=== PATIENT | female | born 1965 | race African-American/Black ===

== ENCOUNTER 2017-01-19 12:44 | Inpatient (IN) | payer OTHER ==
[2017-01-19 13:13] VITALS: BMI 27.2
--- NOTE | 2017-01-19 14:17 | HP ---
COWS - Scale Resting Pulse: 1= [place] 81-100 Sweatin= Chills/Flushing Restless Observation: 1= Difficult to Sit Still Pupil Size: 0= Normal to Room Light Bone or Joint Aches: 1= Mild Discomfort Runny Nose/ Eye Tearin= Nasal Congestion GI Upset > 30mins: 1= Stomach Cramp Tremor Observation: 1= Tremor [place], Not Seen Yawning Observation: 1= 1-2x During Session Anxiety or Irritability: 1=Feels Anxious/Irritable Goose Flesh Skin: 0=Smooth Skin COWS Score: 9 CIWA Score - CIWA Score Nausea/Vomitin-Mild Nausea/No Vomiting Muscle Tremors: 4-Moderate,w/Arms Extend Anxiety: 4-Mod. Anxious/Guarded Agitation: 1-Slight > Activity Paroxysmal Sweats: 1-Minimal Palms Moist Orientation: 1-Uncertain about Date Tacttile Disturbances: 1-Very Mild Itch/Numbness Auditory Disturbances: 1-Very Mild Visual Disturbances: 1-Very Mild Sensitivity Headache: 2-Mild CIWA-Ar Total Score: 17 Admission ROS S - HPI Chief Complaint: I need help, I want to stop Allergies/Adverse Reactions: Allergies Allergy/AdvReac Type Severity Reaction Status Date / Time No Known Allergies Allergy Verified 05/07/14 16:09 History of Present Illness: 51 yo woman here for detox from heroin and alcohol - no seizures or black outs but past history of detox. States she was hospitalized for three days for walking pneumonia in [place] about two weeks ago. Exam Limitations: Clinical Condition - Ebola screening Have you traveled outside of the country in the last 21 days: No Have you had contact with anyone from an Ebola affected area: No Have you been sick,other than usual withdrawal symptoms: No Do you have a fever: No - Review of Systems Constitutional: Loss of Appetite, Malaise, Night Sweats, Changes in sleep EENT: reports: Blurred Vision, Nose Congestion Respiratory: reports: No Symptoms reported Cardiac: reports: No Symptoms Reported GI: reports: Poor Appetite, Indigestion : reports: No Symptoms Reported Musculoskeletal: reports: Back Pain, Muscle Pain Integumentary: reports: No Symptoms Reported Neuro: reports: Headache Endocrine: reports: No Symptoms Reported Hematology: reports: No Symptoms Reported Psychiatric: reports: Judgement Intact, Mood/Affect Appropiate, Anxious Other Systems: Reviewed and Negative Patient History - Patient Medical History Hx Anemia: No Hx Asthma: Yes Hx Chronic Obstructive Pulmonary Disease (COPD): No Hx Cancer: No Hx Cardiac Disorders: No Hx Congestive Heart Failure: No Hx Hypertension: Yes (ON MEDS.) Hx Hypercholesterolemia: No Hx Pacemaker: No HX Cerebrovascular Accident: No Hx Seizures: No Hx Dementia: No Hx Diabetes: No Hx Gastrointestinal Disorders: No Hx Liver Disease: No Hx Genitourinary Disorders: No Hx Sexually Transmitted Disorders: No Hx Renal Disease (ESRD): No Hx Thyroid Disease: No Hx Human Immunodeficiency Virus (HIV): No Hx Hepatitis C: Yes (treated x 3 months) Hx Depression: Yes (on meds) Hx Suicide Attempt: No Hx Bipolar Disorder: No Hx Schizophrenia: No - Patient Surgical History Past Surgical History: No Hx Neurologic Surgery: No Hx Cataract Extraction: No Hx Cardiac Surgery: No Hx Lung Surgery: No Hx Breast Surgery: No Hx Breast Biopsy: No Hx Abdominal Surgery: No Hx Appendectomy: No Hx Cholecystectomy: No Hx Genitourinary Surgery: No Hx Section: No Hx Orthopedic Surgery: No Anesthesia Reaction: No - PPD History Previous Implant?: Yes Documented Results: Negative w/o proof Implanted On Prior [facility] Admission?: Yes Date: 05/09/14 PPD to be Administered?: Yes - Reproductive History Patient is a Female of Child Bearing Age (11 -55 yrs old): Yes Last Menstrual Period: 04/25/14 - Smoking Cessation Smoking history: Current every day smoker Have you smoked in the past 12 months: Yes Aproximately how many cigarettes per day: 20 Hx Chewing Tobacco Use: Yes Initiated information on smoking cessation: Yes 'Breaking Loose' booklet given: 01/19/17 (give on floor) - Substance & Tx. History Hx Alcohol Use: Yes Hx Substance Use: Yes Substance Use Type: Alcohol, Cocaine, Heroin Hx Substance Use Treatment: Yes (detox, rehab) - Substances Abused Heroin Route: Inhalation Frequency: Daily Amount used: 10 bags Age of first use: 20 Date of Last Use: 01/18/17 Alcohol Frequency: Daily Amount used: 1/2 pint liquor; two six packs beer Age of first use: 17 Date of Last Use: 01/18/17 Cocaine Route: Inhalation Frequency: 1-3 times last 30 days Amount used: 2 dime bags Age of first use: 26 Date of Last Use: 01/18/17 Family Disease History - Family Disease History Family Disease History: Other: Father ( - murdered), Mother (, alzheimers) Admission Physical Exam [facility] - Vital Signs Vital Signs: Vital Signs - 24 hr 01/19/17 13:07 Temperature 97.5 F L Pulse Rate 89 Respiratory 18 Rate Blood Pressure 180/111 - Physical General Appearance: Yes: Nourished, Appropriately Dressed, Mild Distress, Anxious HEENTM: Yes: Hearing grossly Normal, Normocephalic, Normal Voice, Pharynx Normal , Nasal Congestion Respiratory: Yes: Normal Breath Sounds, No Respiratory Distress Neck: Yes: No masses,lesions,Nodules, Supple Breast: Yes: Breast Exam Deferred Cardiology: Yes: Regular Rhythm, Regular Rate Abdominal: Yes: Soft Genitourinary: Yes: Within Normal Limits Back: Yes: Normal Inspection Musculoskeletal: Yes: full range of Motion, Gait Steady Extremities: Yes: Normal Inspection, Normal Range of Motion Neurological: Yes: Fully Oriented, Alert, Normal Mood/Affect, Normal Response Integumentary: Yes: Normal Color, Warm Lymphatic: Yes: Within Normal Limits - Diagnostic (1) Alcohol dependence with uncomplicated withdrawal Current Visit: Yes Status: Chronic (2) Nicotine dependence Current Visit: Yes Status: Chronic Qualifiers: Nicotine product type: cigarettes Substance use status: uncomplicated Qualified Code(s): F17.210 - Nicotine dependence, cigarettes, uncomplicated (3) Opioid dependence with withdrawal Current Visit: Yes Status: Chronic (4) HTN (hypertension) Current Visit: Yes Status: Acute Qualifiers: Hypertension type: essential hypertension Qualified Code(s): I10 - Essential (primary) hypertension (5) Asthma Current Visit: Yes Status: Acute Qualifiers: Asthma severity: mild intermittent Asthma complication type: uncomplicated Qualified Code(s): J45.20 - Mild intermittent asthma, uncomplicated (6) GERD (gastroesophageal reflux disease) Current Visit: Yes Status: Chronic Qualifiers: Esophagitis presence: esophagitis presence not specified Qualified Code(s): K21.9 - Gastro-esophageal reflux disease without esophagitis Cleared for Admission [facility] - Detox or Rehab [facility] Level of Care: Medically Managed Detox Regimen/Protocol: Methadone/Librium S Breath Alcohol Content Breath Alcohol Content: 0 Urine Pregancy Test - Result Urine Test Results: Negative- NO Line Present Urine Drug Screen - Results Drug Screen Negative: No Urine Drug Screen Results: LISSET-Cocaine, OPI-Opiates, OXY-Oxycodone
[2017-01-19] MEDS ORDERED: ACETAMINOPHEN 325 MG TABLET (FP) PO PRN (14:31)
[2017-01-19] MEDS ORDERED: IBUPROFEN 400 MG TABLET (FP) PO PRN (14:31)
[2017-01-19] MEDS ORDERED: guaiFENesin/D-METHORPHAN HB 10 ML UNIT-DOSE CUPS PO PRN (14:31)
[2017-01-19] MEDS ORDERED: chlordiazePOXIDE HCL 25 MG CAPSULE PO PRN (14:31)
[2017-01-19] MEDS ORDERED: MENTHOL/PHENOL 1 EACH UD MM PRN (14:31)
[2017-01-19] MEDS ORDERED: MAGNESIUM HYDROX 2400MG/30ML ORAL SUSPENSION 30 ML CUP PO PRN (14:31)
[2017-01-19] MEDS ORDERED: hydrOXYzine PAMOATE 50 MG CAPSULE (FP) PO PRN (14:31)
[2017-01-19] MEDS ORDERED: LOPERAMIDE HCL 2 MG CAPSULE PO PRN (14:31)
[2017-01-19] MEDS ORDERED: P-EPHED 60MG/TRIPROLIDI 2.5MG TABLET PO PRN (14:31)
[2017-01-19] MEDS ORDERED: MAGNESIUM CITRATE 300 ML BOTTLE PO PRN (14:31)
[2017-01-19] MEDS ORDERED: ALBUTEROL SO4 6.7 GM HFA INHALER IH PRN (14:33)
[2017-01-19] MEDS ORDERED: chlordiazePOXIDE HCL 25 MG CAPSULE PO ONE (16:00)
[2017-01-19] MEDS ORDERED: METHADONE HCL 10 MG TABLET (FOR DETOX USE ONLY) PO ONE ×2 (16:00→23:00)
[2017-01-19] MEDS: chlordiazePOXIDE HCL 25 MG CAPSULE PO SCH ×2 (17:21→22:32)
[2017-01-19] MEDS ORDERED: amLODIPine BESYLATE 10 MG TABLET (FP) PO ONE (17:32)
[2017-01-19 19:16] LABS: URINE APPEARANCE CLOUDY; URINE BILIRUBIN NEGATIVE (NEGATIVE); URINE BLOOD 2+ (NEGATIVE); URINE COLOR YELLOW; URINE GLUCOSE (UA) NEGATIVE (NEGATIVE); URINE KETONE NEGATIVE (NEGATIVE); URINE LEUK ESTERASE NEGATIVE (NEGATIVE); URINE NITRITE NEGATIVE (NEGATIVE); URINE PROTEIN 2+ (NEGATIVE); URINE UROBILINOGEN NEGATIVE E.U./dl (0.2-1.0)
[2017-01-19 19:49] LABS: URINE RBC 25-30 /hpf (0-3)
[2017-01-19 19:50] LABS: URINE BACTERIA MANY /hpf (NONE SEEN)
[2017-01-19] MEDS ORDERED: HYDROCHLOROTHIAZIDE 25 MG TABLET (FP) PO ONE (21:09)
[2017-01-19] MEDS: diphenhydrAMINE HCL 50 MG CAPSULE PO PRN (22:31)
[2017-01-19] MEDS: THIAMINE HCL 100 MG TABLET (FP) PO SCH (22:42)
[2017-01-20] MEDS: chlordiazePOXIDE HCL 25 MG CAPSULE PO SCH ×4 (05:33→22:25)
[2017-01-20] MEDS ORDERED: METHADONE HCL 10 MG TABLET (FOR DETOX USE ONLY) PO SCH (10:00)
[2017-01-20 10:26] LABS: MCH 27.4 pg (25.7-33.7); MCHC 32.8 g/dl (32.0-36.0); MEAN CELL VOLUME 83.5 fl (80-96); MEAN PLT VOLUME 9.2 fl (7.5-11.1); RDW 22.5 % (11.6-15.6); WHITE BLOOD COUNT 6.7 K/mm3 (4.0-10.0)
[2017-01-20] MEDS: PANTOPRAZOLE 40 MG TABLET (FP) PO SCH (10:27)
[2017-01-20] MEDS: PRENATAL VITAMINS W/ FOLIC ACID TABLET (FP) PO SCH (10:27)
[2017-01-20] MEDS: HYDROCHLOROTHIAZIDE 25 MG TABLET (FP) PO SCH (10:27)
[2017-01-20] MEDS: amLODIPine BESYLATE 10 MG TABLET (FP) PO SCH (10:27)
[2017-01-20 10:46] LABS: ALBUMIN 3.2 g/dl (3.4-5.0); ALK PHOS 75 U/L (45-117); ANION GAP 7 (8-16); BILIRUBIN,TOTAL 0.4 mg/dL (0.2-1.0); CALCIUM 9.4 mg/dL (8.5-10.1); CO2 30 mmol/L (21-32); CREATININE 0.8 mg/dL (0.55-1.02); GLUCOSE,RANDOM 95 mg/dL (74-106); SGOT/AST 40 U/L (15-37); SGPT/ALT 52 U/L (12-78); TOT PROT 6.9 g/dl (6.4-8.2)
[2017-01-20 11:16] LABS: ANISOCYTOSIS 3+; PLATELET COMMENT2 MOD PLT CLUMPING
--- NOTE | 2017-01-20 12:17 | PN ---
S CIWA - CIWA Score Nausea/Vomitin Muscle Tremors: 3 Anxiety: 4-Mod. Anxious/Guarded Agitation: 4-Moderately Restless Paroxysmal Sweats: No Perspiration Orientation: 0-Oriented Tacttile Disturbances: 1-Very Mild Itch/Numbness Auditory Disturbances: 0-None Visual Disturbances: 0-None Headache: 3-Moderate CIWA-Ar Total Score: 18 [facility] COWS - Scale Resting Pulse: 0= [place] 80 or Below Sweatin= Chills/Flushing Restless Observation: 1= Difficult to Sit Still Pupil Size: 1= Pupils >than Normal Bone or Joint Aches: 2= Severe Diffuse Aches Runny Nose/ Eye Tearin= Runny Nose/Eyes GI Upset > 30mins: 2= Nausea/Diarrhea Tremor Observation of Outstretched Hands: 1= Tremor [place], Not Seen Yawning Observation: 1= 1-2x During Session Anxiety or Irritability: 2=Irritable/Anxious Goose Flesh Skin: 0=Smooth Skin COWS Score: 13 S Progress Note (SOAP) Subjective: Irritable, Generalized Body Aches, Interrupted Sleep, Anxiety, Tremors Objective: 01/20/17 12:14 Vital Signs Temperature 98.1 F 01/20/17 10:00 Pulse Rate 78 01/20/17 10:00 Respiratory Rate 18 01/20/17 10:00 Blood Pressure 158/104 01/20/17 10:00 O2 Sat by Pulse Oximetry (%) Laboratory Last Values WBC 6.7 K/mm3 (4.0-10.0) 01/20/17 08:00 RBC 4.21 M/mm3 (3.60-5.2) 01/20/17 08:00 Hgb 11.5 GM/dL (10.7-15.3) 01/20/17 08:00 Hct 35.1 % (32.4-45.2) 01/20/17 08:00 MCV 83.5 fl (80-96) 01/20/17 08:00 MCHC 32.8 g/dl (32.0-36.0) 01/20/17 08:00 RDW 22.5 % (11.6-15.6) H 01/20/17 08:00 Plt Count Not Reportable 01/20/17 08:00 MPV 9.2 fl (7.5-11.1) D 01/20/17 08:00 Platelet Comment No clotting detected 01/20/17 08:00 Platelet Comment Mod plt clumping 01/20/17 08:00 Anisocytosis 3+ 01/20/17 08:00 Sodium 139 mmol/L (136-145) 01/20/17 08:00 Potassium 4.0 mmol/L (3.5-5.1) 01/20/17 08:00 Chloride 102 mmol/L (98-107) 01/20/17 08:00 Carbon Dioxide 30 mmol/L (21-32) 01/20/17 08:00 Anion Gap 7 (8-16) L 01/20/17 08:00 BUN 12 mg/dL (7-18) 01/20/17 08:00 Creatinine 0.8 mg/dL (0.55-1.02) 01/20/17 08:00 Creat Clearance w eGFR > 60 (>60) 01/20/17 08:00 Random Glucose 95 mg/dL (74-106) 01/20/17 08:00 Calcium 9.4 mg/dL (8.5-10.1) 01/20/17 08:00 Total Bilirubin 0.4 mg/dL (0.2-1.0) 01/20/17 08:00 AST 40 U/L (15-37) H D 01/20/17 08:00 ALT 52 U/L (12-78) 01/20/17 08:00 Alkaline Phosphatase 75 U/L (45-117) 01/20/17 08:00 Total Protein 6.9 g/dl (6.4-8.2) 01/20/17 08:00 Albumin 3.2 g/dl (3.4-5.0) L 01/20/17 08:00 Urine Color Yellow 01/19/17 18:00 Urine Appearance Cloudy 01/19/17 18:00 Urine pH 5.0 (5.0-8.0) D 01/19/17 18:00 Ur Specific [place] 1.018 (1.001-1.035) 01/19/17 18:00 Urine Protein 2+ (NEGATIVE) H 01/19/17 18:00 Urine Glucose (UA) Negative (NEGATIVE) 01/19/17 18:00 Urine Ketones Negative (NEGATIVE) 01/19/17 18:00 Urine Blood 2+ (NEGATIVE) H 01/19/17 18:00 Urine Nitrite Negative (NEGATIVE) 01/19/17 18:00 Urine Bilirubin Negative (NEGATIVE) 01/19/17 18:00 Urine Urobilinogen Negative E.U./dl (0.2-1.0) 01/19/17 18:00 Ur Leukocyte Esterase Negative (NEGATIVE) 01/19/17 18:00 Urine RBC 25-30 /hpf (0-3) 01/19/17 18:00 Urine WBC 10-15 /hpf (3-5) 01/19/17 18:00 Urine Bacteria Many /hpf (NONE SEEN) 01/19/17 18:00 labs Noted Assessment: Withdrawal Symptoms Plan: Continue Detox
--- NOTE | 2017-01-20 18:18 | EKG ---
Test Reason : Blood Pressure : / mmHG Vent. Rate : 080 BPM Atrial Rate : 080 BPM P-R Int : 164 ms QRS Dur : 088 ms QT Int : 400 ms P-R-T Axes : 063 057 045 degrees QTc Int : 461 ms NORMAL SINUS RHYTHM POSSIBLE LEFT ATRIAL ENLARGEMENT LEFT VENTRICULAR HYPERTROPHY ABNORMAL ECG NO PREVIOUS ECGS AVAILABLE Confirmed by JAYLON HALL MD ([id number]) on 01/20/2017 6:18:05 PM Referred By: Confirmed By:JAYLON HALL MD
[2017-01-20] MEDS: diphenhydrAMINE HCL 50 MG CAPSULE PO PRN (22:25)
[2017-01-20] MEDS: THIAMINE HCL 100 MG TABLET (FP) PO SCH (22:25)
[2017-01-20] MEDS: NICOTINE POLACRILEX 4 MG GUM BUC PRN (22:28)
[2017-01-20] MEDS ORDERED: cloNIDine HCL 0.1 MG TABLET PO ONE (23:13)
[2017-01-21] MEDS: chlordiazePOXIDE HCL 25 MG CAPSULE PO SCH ×2 (06:20→10:20)
--- NOTE | 2017-01-21 07:44 | CONSULT ---
[facility] Psychiatric Consult - Data Date of interview: 01/21/17 Admission source: [facility] Identifying data: This is 51 years old female with psychiatric hospitalization history intozxicated with Alcohol, Cocaine, and Nicotine, Heroin Substance Abuse History: - Smoking Cessation. Smoking history: Current every day smoker. Have you smoked in the past 12 months: Yes. Aproximately how many cigarettes per day: 20. Hx Chewing Tobacco Use: Yes. Initiated information on smoking cessation: Yes. 'Breaking Loose' booklet given: 01/19/17 (give on floor ). - Substance & Tx. History. Hx Alcohol Use: Yes. Hx Substance Use: Yes. Substance Use Type: Alcohol, Cocaine, Heroin. Hx Substance Use Treatment: Yes ( detox, rehab). - Substances Abused. Heroin. Route: Inhalation. Frequency : Daily. Amount used: 10 bags. Age of first use: 20. Date of Last Use: . Alcohol. Frequency: Daily. Amount used: 1/2 pint liquor; two six packs beer. Age of first use: 17. Date of Last Use: 01/18/17. Cocaine. Route: Inhalation. Frequency: 1-3 times last 30 days. Amount used: 2 dime bags. Age of first use: 26. Date of Last Use: 01/18/17 Medical History: Asthma, HTN, GERD, HepC+, Syncope history Psychiatric History: Patient reportsd history of Schizoaffective disorder, Bipol ;ar disorder, reports [facility], reprots currently taking: Remeron 15mg po qhs. As per computere there is a history of Bipolar disorder, Schizoaffective disorder Physical/Sexual Abuse/Trauma History: Denies Additional Comment: Remeron 15mg po qhs Mental Status Exam - Mental Status Exam Alert and Oriented to: Person Cognitive Function: Fair Affect: Flat Patient Behavior: Sedated Speech Pattern: Delayed Voice Loudness: Mildly Soft/Quiet Thought Process: Circumstantial Thought Disorder: Being Controlled Hallucinations: Denies Suicidal Ideation: Denies Homicidal Ideation: Denies Insight/Judgement: Fair Sleep: Difficulty falling asleep Appetite: Weight gain Muscle strength/Tone: Mild Hypotonicity Gait/Station: Shuffling Additional Comments: Remeron 15mg po qhs Psychiatric Findings - Problem List ([place] 1, 2,3) (1) Alcohol dependence with uncomplicated withdrawal Current Visit: Yes Status: Chronic (2) Nicotine dependence Current Visit: Yes Status: Chronic Qualifiers: Nicotine product type: cigarettes Substance use status: uncomplicated Qualified Code(s): F17.210 - Nicotine dependence, cigarettes, uncomplicated (3) Opioid dependence with withdrawal Current Visit: Yes Status: Chronic (4) Cocaine dependence Current Visit: No Status: Active (5) Hepatitis C carrier Current Visit: No Status: Active (6) Mood Disorder NOS Current Visit: No Status: Acute (7) Schizoaffective disorder, bipolar type Current Visit: Yes Status: Suspected (8) Non compliance w medication regimen Current Visit: Yes Status: Acute - Initial Treatment Plan Initial Treatment Plan: Remeron 15mg po qhs
[2017-01-21] MEDS: METHADONE HCL 5 MG TABLET (FOR DETOX USE ONLY) PO SCH (10:20)
[2017-01-21] MEDS: PANTOPRAZOLE 40 MG TABLET (FP) PO SCH (10:20)
[2017-01-21] MEDS: HYDROCHLOROTHIAZIDE 25 MG TABLET (FP) PO SCH (10:20)
[2017-01-21] MEDS: amLODIPine BESYLATE 10 MG TABLET (FP) PO SCH (10:20)
[2017-01-21] MEDS: PRENATAL VITAMINS W/ FOLIC ACID TABLET (FP) PO SCH (10:20)
--- NOTE | 2017-01-21 10:56 | PN ---
[facility] CIWA - CIWA Score Nausea/Vomitin-No Nausea/No Vomiting Muscle Tremors: 4-Moderate,w/Arms Extend Anxiety: 4-Mod. Anxious/Guarded Agitation: 4-Moderately Restless Paroxysmal Sweats: 3 Orientation: 0-Oriented Tacttile Disturbances: 0-None Auditory Disturbances: 0-None Visual Disturbances: 0-None Headache: 0-None Present CIWA-Ar Total Score: 15 S COWS - Scale Resting Pulse: 1= [place] 81-100 Sweatin=Flushed/Facial Moisture Restless Observation: 1= Difficult to Sit Still Pupil Size: 0= Normal to Room Light Bone or Joint Aches: 2= Severe Diffuse Aches Runny Nose/ Eye Tearin= Nasal Congestion GI Upset > 30mins: 0= None Tremor Observation of Outstretched Hands: 1= Tremor [place], Not Seen Yawning Observation: 1= 1-2x During Session Anxiety or Irritability: 1=Feels Anxious/Irritable Goose Flesh Skin: 3=Piloerection COWS Score: 13 [facility] Progress Note (SOAP) Subjective: chills sweats low back pain tired interrupted sleep Objective: 01/21/17 10:55 Vital Signs Temperature 98.4 F 01/21/17 10:22 Pulse Rate 84 01/21/17 10:22 Respiratory Rate 16 01/21/17 10:22 Blood Pressure 142/95 01/21/17 10:22 O2 Sat by Pulse Oximetry (%) Laboratory Tests 01/19/17 01/20/17 01/20/17 18:00 08:00 08:00 WBC 6.7 RBC 4.21 Hgb 11.5 Hct 35.1 MCV 83.5 MCHC 32.8 RDW 22.5 H Plt Count Not Reportable MPV 9.2 D Platelet Comment Mod plt clumping Anisocytosis 3+ Sodium 139 Potassium 4.0 Chloride 102 Carbon Dioxide 30 Anion Gap 7 L BUN 12 Creatinine 0.8 Creat Clearance w eGFR > 60 Random Glucose 95 Calcium 9.4 Total Bilirubin 0.4 AST 40 H D ALT 52 Alkaline Phosphatase 75 Total Protein 6.9 Albumin 3.2 L Urine Color Yellow Urine Appearance Cloudy Urine pH 5.0 D Ur Specific [place] 1.018 Urine Protein 2+ H Urine Glucose (UA) Negative Urine Ketones Negative Urine Blood 2+ H Urine Nitrite Negative Urine Bilirubin Negative Urine Urobilinogen Negative Ur Leukocyte Esterase Negative Urine RBC 25-30 Urine WBC 10-15 Urine Bacteria Many RPR Titer T.pallidum Ab (A) 01/20/17 08:00 WBC RBC Hgb Hct MCV MCHC RDW Plt Count MPV Platelet Comment Anisocytosis Sodium Potassium Chloride Carbon Dioxide Anion Gap BUN Creatinine Creat Clearance w eGFR Random Glucose Calcium Total Bilirubin AST ALT Alkaline Phosphatase Total Protein Albumin Urine Color Urine Appearance Urine pH Ur Specific [place] Urine Protein Urine Glucose (UA) Urine Ketones Urine Blood Urine Nitrite Urine Bilirubin Urine Urobilinogen Ur Leukocyte Esterase Urine RBC Urine WBC Urine Bacteria RPR Titer Reactive 1:1 H T.pallidum Ab ([facility]) Previously reactive awake/alert lying in bed no acute distress Assessment: 01/21/17 10:56 withdrawal sx Plan: continue detox increase fluids
[2017-01-21] MEDS: chlordiazePOXIDE 5 MG CAPSULE PO SCH ×2 (17:49→22:13)
[2017-01-21] MEDS: NICOTINE POLACRILEX 4 MG GUM BUC PRN (17:52)
[2017-01-21] MEDS: THIAMINE HCL 100 MG TABLET (FP) PO SCH (22:12)
[2017-01-21] MEDS: diphenhydrAMINE HCL 50 MG CAPSULE PO PRN (22:12)
[2017-01-21] MEDS: MIRTAZAPINE 15 MG TABLET (FP) PO SCH (22:12)
--- NOTE | 2017-01-21 23:00 | PN ---
S Progress Note Note: received nurse call bp 144/102, librium 15 mg administered change diet to no salt continue detox
[2017-01-22] MEDS: chlordiazePOXIDE 5 MG CAPSULE PO SCH ×2 (05:35→10:18)
--- NOTE | 2017-01-22 09:46 | PN ---
[facility] Progress Note (SOAP) Subjective: sweats, lbp Objective: 01/22/17 09:44 Vital Signs Temperature 97.5 F L 01/22/17 06:33 Pulse Rate 77 01/22/17 06:33 Respiratory Rate 18 01/22/17 06:33 Blood Pressure 129/84 01/22/17 06:33 O2 Sat by Pulse Oximetry (%) Laboratory Tests 01/19/17 01/20/17 01/20/17 18:00 08:00 08:00 WBC 6.7 RBC 4.21 Hgb 11.5 Hct 35.1 MCV 83.5 MCHC 32.8 RDW 22.5 H Plt Count Not Reportable MPV 9.2 D Platelet Comment Mod plt clumping Anisocytosis 3+ Sodium Potassium Chloride Carbon Dioxide Anion Gap BUN Creatinine Creat Clearance w eGFR Random Glucose Calcium Total Bilirubin AST ALT Alkaline Phosphatase Total Protein Albumin Urine Color Yellow Urine Appearance Cloudy Urine pH 5.0 D Ur Specific [place] 1.018 Urine Protein 2+ H Urine Glucose (UA) Negative Urine Ketones Negative Urine Blood 2+ H Urine Nitrite Negative Urine Bilirubin Negative Urine Urobilinogen Negative Ur Leukocyte Esterase Negative Urine RBC 25-30 Urine WBC 10-15 Urine Bacteria Many RPR Titer T.pallidum Ab ([facility]) Hepatitis C Antibody >11.0 H 01/20/17 01/20/17 08:00 08:00 WBC RBC Hgb Hct MCV MCHC RDW Plt Count MPV Platelet Comment Anisocytosis Sodium 139 Potassium 4.0 Chloride 102 Carbon Dioxide 30 Anion Gap 7 L BUN 12 Creatinine 0.8 Creat Clearance w eGFR > 60 Random Glucose 95 Calcium 9.4 Total Bilirubin 0.4 AST 40 H D ALT 52 Alkaline Phosphatase 75 Total Protein 6.9 Albumin 3.2 L Urine Color Urine Appearance Urine pH Ur Specific [place] Urine Protein Urine Glucose (UA) Urine Ketones Urine Blood Urine Nitrite Urine Bilirubin Urine Urobilinogen Ur Leukocyte Esterase Urine RBC Urine WBC Urine Bacteria RPR Titer Reactive 1:1 H T.pallidum Ab ([facility]) Previously reactive Hepatitis C Antibody 01/22/17 11:01 pt aox3 in nad ambulating Assessment: 01/22/17 09:45 withdrawal sx;s platlelet abn. 01/22/17 09:46 01/22/17 11:01 Plan: cont. detox increase fluids d/c motrin repeat cbc/platlets
[2017-01-22] MEDS: PRENATAL VITAMINS W/ FOLIC ACID TABLET (FP) PO SCH (10:17)
[2017-01-22] MEDS: amLODIPine BESYLATE 10 MG TABLET (FP) PO SCH (10:17)
[2017-01-22] MEDS: PANTOPRAZOLE 40 MG TABLET (FP) PO SCH (10:17)
[2017-01-22] MEDS: HYDROCHLOROTHIAZIDE 25 MG TABLET (FP) PO SCH (10:18)
[2017-01-22] MEDS: METHADONE HCL 5 MG TABLET (FOR DETOX USE ONLY) PO SCH (10:18)
[2017-01-22 13:34] LABS: BASOPHIL 0.8 % (0-2.0); EOSINOPHIL 3.6 % (0-4.5); MCH 27.1 pg (25.7-33.7); MCHC 32.4 g/dl (32.0-36.0); MEAN CELL VOLUME 83.5 fl (80-96); MEAN PLT VOLUME 9.3 fl (7.5-11.1); NEUTROPHILS 51.9 % (42.8-82.8); RDW 22.4 % (11.6-15.6); WHITE BLOOD COUNT 6.1 K/mm3 (4.0-10.0)
[2017-01-22] MEDS: NICOTINE POLACRILEX 4 MG GUM BUC PRN (15:16)
[2017-01-22 15:42] LABS: PLATELET ESTIMATE ADEQUATE (NORMAL)
[2017-01-22] MEDS: chlordiazePOXIDE HCL 10 MG CAPSULE PO SCH ×2 (17:11→22:12)
[2017-01-22] MEDS: MIRTAZAPINE 15 MG TABLET (FP) PO SCH (22:12)
[2017-01-22] MEDS: THIAMINE HCL 100 MG TABLET (FP) PO SCH (22:12)
[2017-01-23] MEDS: chlordiazePOXIDE HCL 10 MG CAPSULE PO SCH (06:15)
[2017-01-23 06:40] VITALS: BP 132/74; PULSE 84; TEMP 98.1
--- NOTE | 2017-01-23 08:48 | DS ---
[facility] Detox Discharge Summary Admission Date: 01/19/17 Discharge Date: 01/23/17 - History Present History: Alcohol Dependence, Opioid Dependence - Physical Exam Results Vital Signs: Vital Signs Temperature 98.1 F 01/23/17 06:40 Pulse Rate 84 01/23/17 06:40 Respiratory Rate 18 01/23/17 06:40 Blood Pressure 132/74 01/23/17 06:40 O2 Sat by Pulse Oximetry (%) - Treatment Hospital Course: Detox Protocol Followed, Detoxed Safely, Responded well, Discharged Condition Good, Rehab Referral Accepted - Medication Discharge Medications: Ambulatory Orders Mirtazapine [Remeron -] 15 mg PO HS #30 tablet 05/08/14 Albuterol Sulfate Inhaler - [Ventolin HFA Inhaler -] 2 inh PO Q4H PRN #1 inh Amlodipine Besylate [Norvasc -] 10 mg PO DAILY #30 tablet 05/11/14 Hydrochlorothiazide [Hctz -] 25 mg PO DAILY #30 tablet 05/11/14 Pantoprazole Sodium [Protonix -] 40 mg PO DAILY #30 tablet.ec 05/11/14 Mirtazapine [Remeron -] 15 mg PO HS #30 tablet 01/21/17 - Diagnosis (1) Asthma Current Visit: Yes Status: Chronic Qualifiers: Asthma severity: mild intermittent Asthma complication type: uncomplicated Qualified Code(s): J45.20 - Mild intermittent asthma, uncomplicated (2) HTN (hypertension) Current Visit: Yes Status: Chronic Qualifiers: Hypertension type: essential hypertension Qualified Code(s): I10 - Essential (primary) hypertension (3) Non compliance w medication regimen Current Visit: Yes Status: Acute (4) Alcohol dependence with uncomplicated withdrawal Current Visit: Yes Status: Chronic (5) GERD (gastroesophageal reflux disease) Current Visit: Yes Status: Chronic Qualifiers: Esophagitis presence: esophagitis presence not specified Qualified Code(s): K21.9 - Gastro-esophageal reflux disease without esophagitis (6) Nicotine dependence Current Visit: Yes Status: Chronic Qualifiers: Nicotine product type: cigarettes Substance use status: uncomplicated Qualified Code(s): F17.210 - Nicotine dependence, cigarettes, uncomplicated (7) Opioid dependence with withdrawal Current Visit: Yes Status: Chronic (8) Schizoaffective disorder, bipolar type Current Visit: Yes Status: Suspected (9) Cocaine dependence Current Visit: Yes Status: Chronic (10) Hepatitis C carrier Current Visit: No Status: Active (11) depression Current Visit: No Status: Chronic (12) syncope alcohol related Current Visit: No Status: Active (13) Mood Disorder NOS Current Visit: No Status: Acute - AMA Did Patient Leave Against Medical Advice: No
[2017-01-23] MEDS: amLODIPine BESYLATE 10 MG TABLET (FP) PO SCH (09:00)
[2017-01-23] MEDS: PANTOPRAZOLE 40 MG TABLET (FP) PO SCH (09:00)
[2017-01-23] MEDS: HYDROCHLOROTHIAZIDE 25 MG TABLET (FP) PO SCH (09:00)
[2017-01-23] MEDS ORDERED: METHADONE HCL 5 MG TABLET (FOR DETOX USE ONLY) PO ONE (09:00)
[2017-01-23] MEDS ORDERED: METHADONE HCL 5 MG TABLET (FOR DETOX USE ONLY) PO SCH (09:00)
[2017-01-23] MEDS: PRENATAL VITAMINS W/ FOLIC ACID TABLET (FP) PO SCH (09:00)
[2017-01-23] MEDS ORDERED: METHADONE HCL 10 MG TABLET (FOR DETOX USE ONLY) PO SCH (10:00)
[2017-01-24 00:08] LABS: HCV LOG 10 5.878 (.)
[2017-01-24] MEDS ORDERED: METHADONE HCL 5 MG TABLET (FOR DETOX USE ONLY) PO SCH (06:00)
== END 2017-01-23 09:30 | disposition home or self-care (01) | DRG 773 ==
LOC: YASAS 12:44 → Y6N 15:14
PROVIDERS: ADMIT Internal Medicine; ATTEND Internal Medicine
PROC: HZ2ZZZZ Detoxification Services for Substance Abuse Treatment (ICD-10-PCS; principal; 2017-01-23)
DX: F11.23 Opioid dependence with withdrawal (principal); F10.230 Alcohol dependence with withdrawal, uncomplicated; F14.20 Cocaine dependence, uncomplicated; F32.9 Major depressive disorder, single episode, unspecified; F39 Unspecified mood [affective] disorder; F25.0 Schizoaffective disorder, bipolar type; B18.2 Chronic viral hepatitis C; I10 Essential (primary) hypertension; K21.9 Gastro-esophageal reflux disease without esophagitis; J45.20 Mild intermittent asthma, uncomplicated; Z91.14 Patient's other noncompliance with medication regimen
CPT/HCPCS: 36415; 80053; 81003; 81015; 85025; 85027; 86593; 86780; 87522; 93005; 93010

== ENCOUNTER 2017-04-03 10:29 | Inpatient (IN) | payer OTHER ==
[2017-04-03 11:20] VITALS: BMI 25.0
--- NOTE | 2017-04-03 15:00 | HP ---
COWS - Scale Resting Pulse: 1= ME 81-100 Sweatin=Flushed/Facial Moisture Restless Observation: 1= Difficult to Sit Still Pupil Size: 0= Normal to Room Light Bone or Joint Aches: 2= Severe Diffuse Aches Runny Nose/ Eye Tearin= Runny Nose/Eyes GI Upset > 30mins: 0= None Tremor Observation: 2= Slight Tremor Visible Yawning Observation: 2= >3x During Session Anxiety or Irritability: 2=Irritable/Anxious Goose Flesh Skin: 3=Piloerection COWS Score: 17 CIWA Score - CIWA Score Nausea/Vomitin-No Nausea/No Vomiting Muscle Tremors: 4-Moderate,w/Arms Extend Anxiety: 3 Agitation: 4-Moderately Restless Paroxysmal Sweats: 3 Orientation: 0-Oriented Tacttile Disturbances: 0-None Auditory Disturbances: 0-None Visual Disturbances: 0-None Headache: 2-Mild CIWA-Ar Total Score: 16 Admission ROS S - HPI Chief Complaint: I am here to detox. Allergies/Adverse Reactions: Allergies Allergy/AdvReac Type Severity Reaction Status Date / Time No Known Allergies Allergy Verified 04/03/17 14:47 History of Present Illness: pt is a 51yr old female with a history of alcohol and heroin dependence seeking detox for treatment. Exam Limitations: No Limitations - Ebola screening Have you traveled outside of the country in the last 21 days: No Have you had contact with anyone from an Ebola affected area: No Have you been sick,other than usual withdrawal symptoms: No Do you have a fever: No - Review of Systems Constitutional: Chills, Diaphoresis, Loss of Appetite, Night Sweats, Unintentional Wgt. Loss, Unexplained wgt Loss EENT: reports: Tearing, Nose Congestion Respiratory: reports: Cough Cardiac: reports: No Symptoms Reported GI: reports: Poor Appetite, Poor Fluid Intake, Indigestion, Abdominal cramping : reports: No Symptoms Reported Musculoskeletal: reports: No Symptoms Reported Integumentary: reports: Flushing, Sweating Neuro: reports: Headache, Tingling, Tremors Endocrine: reports: Excessive Sweating, Flushing, Intolerance to Cold, Intolerance to Heat Hematology: reports: No Symptoms Reported Psychiatric: reports: Judgement Intact, Mood/Affect Appropiate, Orientated x3, Agitated, Anxious Other Systems: Reviewed and Negative Patient History - Patient Medical History Hx Anemia: No Hx Asthma: Yes Hx Chronic Obstructive Pulmonary Disease (COPD): No Hx Cancer: No Hx Cardiac Disorders: No Hx Congestive Heart Failure: No Hx Hypertension: Yes (ON MEDS.) Hx Hypercholesterolemia: No Hx Pacemaker: No HX Cerebrovascular Accident: No Hx Seizures: No Hx Dementia: No Hx Diabetes: No Hx Gastrointestinal Disorders: No Hx Liver Disease: No Hx Genitourinary Disorders: No Hx Sexually Transmitted Disorders: No Hx Renal Disease (ESRD): No Hx Thyroid Disease: No Hx Human Immunodeficiency Virus (HIV): No Hx Hepatitis C: Yes (treated x 3 months) Hx Depression: Yes (on meds) Hx Suicide Attempt: No (denies) Hx Bipolar Disorder: Yes Hx Schizophrenia: Yes - Patient Surgical History Past Surgical History: No Hx Neurologic Surgery: No Hx Cataract Extraction: No Hx Cardiac Surgery: No Hx Lung Surgery: No Hx Breast Surgery: No Hx Breast Biopsy: No Hx Abdominal Surgery: No Hx Appendectomy: No Hx Cholecystectomy: No Hx Genitourinary Surgery: No Hx Section: No Hx Orthopedic Surgery: No Anesthesia Reaction: No - PPD History Previous Implant?: Yes Documented Results: Negative w/proof Date: 01/21/17 PPD to be Administered?: No - Reproductive History Patient is a Female of Child Bearing Age (11 -55 yrs old): No Last Menstrual Period: 04/25/14 Patient : No - Smoking Cessation Smoking history: Current every day smoker Have you smoked in the past 12 months: Yes Aproximately how many cigarettes per day: 20 Hx Chewing Tobacco Use: No Initiated information on smoking cessation: Yes 'Breaking Loose' booklet given: 04/03/17 - Substance & Tx. History Hx Alcohol Use: Yes Hx Substance Use: Yes Substance Use Type: Alcohol, Heroin - Substances Abused Alcohol-vodka/beer Route: Oral Frequency: Daily Amount used: 2 pts./1-6 pk. Age of first use: 20 Date of Last Use: 04/02/17 Heroin Route: Inhalation Frequency: Daily Amount used: 12 bags Age of first use: 20 Date of Last Use: 04/02/17 Family Disease History - Family Disease History Family Disease History: Other: Father ( - murdered), Mother (, alzheimers) Admission Physical Exam [facility] - Vital Signs Vital Signs: Vital Signs - 24 hr 04/03/17 11:14 Temperature 97.6 F Pulse Rate 91 H Respiratory 20 Rate Blood Pressure 148/96 - Physical General Appearance: Yes: Appropriately Dressed, Moderate Distress, Tremorous, Irritable, Sweating, Anxious HEENTM: Yes: Normal Voice Respiratory: Yes: Lungs Clear, Normal Breath Sounds, No Respiratory Distress Neck: Yes: No masses,lesions,Nodules, Supple Breast: Yes: Within Normal Limits Cardiology: Yes: Regular Rhythm, Regular Rate, S1, S2 Abdominal: Yes: Normal Bowel Sounds, Non Tender, Soft Genitourinary: Yes: Within Normal Limits Back: Yes: Normal Inspection Musculoskeletal: Yes: full range of Motion, Back pain Extremities: Yes: Normal Capillary Refill, Normal Inspection, Non-Tender, Tremors Neurological: Yes: Fully Oriented, Alert, Normal Response Integumentary: Yes: Normal Color, Diaphoresis Lymphatic: Yes: Within Normal Limits - Diagnostic (1) Alcohol dependence with uncomplicated withdrawal Current Visit: Yes Status: Chronic (2) Asthma Current Visit: Yes Status: Chronic Qualifiers: Asthma severity: mild intermittent Asthma complication type: uncomplicated Qualified Code(s): J45.20 - Mild intermittent asthma, uncomplicated (3) Cocaine dependence Current Visit: Yes Status: Chronic (4) GERD (gastroesophageal reflux disease) Current Visit: Yes Status: Chronic Qualifiers: Esophagitis presence: esophagitis presence not specified Qualified Code(s): K21.9 - Gastro-esophageal reflux disease without esophagitis (5) HTN (hypertension) Current Visit: Yes Status: Chronic Qualifiers: Hypertension type: essential hypertension Qualified Code(s): I10 - Essential (primary) hypertension (6) Hepatitis C carrier Current Visit: Yes Status: Chronic Comment: received tx. (7) Nicotine dependence Current Visit: Yes Status: Chronic Qualifiers: Nicotine product type: cigarettes Substance use status: uncomplicated Qualified Code(s): F17.210 - Nicotine dependence, cigarettes, uncomplicated (8) Opioid dependence with withdrawal Current Visit: Yes Status: Chronic Cleared for Admission [facility] - Detox or Rehab S Level of Care: Medically Managed Detox Regimen/Protocol: Methadone/Librium S Breath Alcohol Content Breath Alcohol Content: 0 Urine Pregancy Test - Result Urine Test Results: Negative- NO Line Present Urine Drug Screen - Results Drug Screen Negative: No Urine Drug Screen Results: LISSET-Cocaine, OPI-Opiates
[2017-04-03] MEDS ORDERED: P-EPHED 60MG/TRIPROLIDI 2.5MG TABLET PO PRN (15:15)
[2017-04-03] MEDS ORDERED: ACETAMINOPHEN 325 MG TABLET (FP) PO PRN (15:15)
[2017-04-03] MEDS ORDERED: guaiFENesin/D-METHORPHAN HB 10 ML UNIT-DOSE CUPS PO PRN (15:15)
[2017-04-03] MEDS ORDERED: hydrOXYzine PAMOATE 50 MG CAPSULE (FP) PO PRN (15:15)
[2017-04-03] MEDS ORDERED: MENTHOL/PHENOL 1 EACH UD MM PRN (15:15)
[2017-04-03] MEDS ORDERED: IBUPROFEN 400 MG TABLET (FP) PO PRN (15:15)
[2017-04-03] MEDS ORDERED: MAGNESIUM CITRATE 300 ML BOTTLE PO PRN (15:15)
[2017-04-03] MEDS ORDERED: LOPERAMIDE HCL 2 MG CAPSULE PO PRN (15:15)
[2017-04-03] MEDS ORDERED: MAGNESIUM HYDROX 2400MG/30ML ORAL SUSPENSION 30 ML CUP PO PRN (15:15)
[2017-04-03] MEDS ORDERED: MAG HYDROX/AL HYDROX/SIMETH 30 ML UNIT-DOSE CUP PO PRN (15:15)
[2017-04-03] MEDS ORDERED: diphenhydrAMINE HCL 50 MG CAPSULE PO PRN (15:15)
[2017-04-03] MEDS ORDERED: chlordiazePOXIDE HCL 25 MG CAPSULE PO PRN (15:15)
[2017-04-03] MEDS ORDERED: ALBUTEROL SO4 6.7 GM HFA INHALER IH PRN (15:17)
[2017-04-03] MEDS ORDERED: chlordiazePOXIDE HCL 25 MG CAPSULE PO ONE (15:31)
[2017-04-03] MEDS ORDERED: METHADONE HCL 10 MG TABLET (FOR DETOX USE ONLY) PO ONE ×2 (15:33→23:00)
[2017-04-03] MEDS ORDERED: cloNIDine HCL 0.1 MG TABLET PO ONE (17:00)
[2017-04-03] MEDS: chlordiazePOXIDE HCL 25 MG CAPSULE PO SCH ×2 (17:33→22:25)
[2017-04-03] MEDS: THIAMINE HCL 100 MG TABLET (FP) PO SCH (22:25)
[2017-04-03] MEDS ORDERED: amLODIPine BESYLATE 10 MG TABLET (FP) PO ONE (22:51)
[2017-04-04] MEDS: chlordiazePOXIDE HCL 25 MG CAPSULE PO SCH ×4 (06:13→22:15)
[2017-04-04] MEDS: NICOTINE POLACRILEX 4 MG GUM BUC PRN ×4 (06:48→17:51)
--- NOTE | 2017-04-04 09:48 | PN ---
S CIWA - CIWA Score Nausea/Vomitin Muscle Tremors: 3 Anxiety: 3 Agitation: 3 Paroxysmal Sweats: 1-Minimal Palms Moist Orientation: 0-Oriented Tacttile Disturbances: 1-Very Mild Itch/Numbness Auditory Disturbances: 1-Very Mild Visual Disturbances: 1-Very Mild Sensitivity Headache: 2-Mild CIWA-Ar Total Score: 18 BHS Progress Note (SOAP) Subjective: ALERT,IRRITABLE,ANXIOUS,INTERRUPTED SLEEP,TREMOR Objective: 04/04/17 09:47 Vital Signs Temperature 98.2 F 04/04/17 06:52 Pulse Rate 82 04/04/17 06:52 Respiratory Rate 18 04/04/17 06:52 Blood Pressure 158/104 04/04/17 06:52 O2 Sat by Pulse Oximetry (%) 04/04/17 09:48 04/04/17 09:49 EKG NSR,LVH NO CHEST PAIN,NO SOB,NO DIZZINESS 04/04/17 09:50 LABS PENDING Assessment: WITHDRAWAL SYMPTOM 04/04/17 09:50 Plan: CONTINUE DETOX
[2017-04-04 09:56] LABS: MCH 26.3 pg (25.7-33.7); MCHC 32.3 g/dl (32.0-36.0); MEAN CELL VOLUME 81.5 fl (80-96); MEAN PLT VOLUME 9.8 fl (7.5-11.1); RDW 17.8 % (11.6-15.6); WHITE BLOOD COUNT 8.9 K/mm3 (4.0-10.0)
[2017-04-04 10:00] LABS: ALBUMIN 3.8 g/dl (3.4-5.0); ANION GAP 10 (8-16); CALCIUM 9.5 mg/dL (8.5-10.1); CO2 27 mmol/L (21-32); GLUCOSE,RANDOM 126 mg/dL (74-106)
[2017-04-04] MEDS ORDERED: METHADONE HCL 10 MG TABLET (FOR DETOX USE ONLY) PO SCH (10:00)
[2017-04-04 10:04] LABS: ALK PHOS 71 U/L (45-117); BILIRUBIN,TOTAL 0.4 mg/dL (0.2-1.0); CREATININE 0.9 mg/dL (0.55-1.02); SGOT/AST 45 U/L (15-37); SGPT/ALT 39 U/L (12-78); TOT PROT 7.9 g/dl (6.4-8.2)
[2017-04-04] MEDS: PRENATAL VITAMINS W/ FOLIC ACID TABLET (FP) PO SCH (10:29)
[2017-04-04] MEDS: HYDROCHLOROTHIAZIDE 25 MG TABLET (FP) PO SCH (10:30)
[2017-04-04] MEDS: PRAZOSIN HCL 5 MG CAPSULE PO SCH ×2 (10:30→22:15)
[2017-04-04] MEDS: PANTOPRAZOLE 40 MG TABLET (FP) PO SCH (10:30)
[2017-04-04] MEDS: amLODIPine BESYLATE 10 MG TABLET (FP) PO SCH (10:30)
[2017-04-04] MEDS: NICOTINE 21 MG/24 HOURS TOPICAL PATCH TD SCH (10:31)
--- NOTE | 2017-04-04 12:49 | EKG ---
Test Reason : Blood Pressure : / mmHG Vent. Rate : 078 BPM Atrial Rate : 078 BPM P-R Int : 162 ms QRS Dur : 090 ms QT Int : 398 ms P-R-T Axes : 059 051 050 degrees QTc Int : 453 ms NORMAL SINUS RHYTHM POSSIBLE LEFT ATRIAL ENLARGEMENT LEFT VENTRICULAR HYPERTROPHY NONSPECIFIC T WAVE ABNORMALITY ABNORMAL ECG WHEN COMPARED WITH ECG OF 03-APR-2017 15:09, NONSPECIFIC T WAVE ABNORMALITY NOW EVIDENT IN INFERIOR LEADS NONSPECIFIC T WAVE ABNORMALITY NOW EVIDENT IN LATERAL LEADS Confirmed by MARY MOTTA MD ([id number]) on 04/04/2017 12:49:17 PM Referred By: Confirmed By:MARY MOTTA MD
--- NOTE | 2017-04-04 12:50 | EKG ---
Test Reason : Blood Pressure : / mmHG Vent. Rate : 071 BPM Atrial Rate : 071 BPM P-R Int : 154 ms QRS Dur : 076 ms QT Int : 408 ms P-R-T Axes : 059 061 065 degrees QTc Int : 443 ms NORMAL SINUS RHYTHM WITH SINUS ARRHYTHMIA POSSIBLE LEFT ATRIAL ENLARGEMENT LEFT VENTRICULAR HYPERTROPHY ABNORMAL ECG WHEN COMPARED WITH ECG OF 19-JAN-2017 15:58, NO SIGNIFICANT CHANGE WAS FOUND Confirmed by ÁNGELA CALVO, MARY ([id number]) on 04/04/2017 12:50:42 PM Referred By: Confirmed By:MARY MOTTA MD
--- NOTE | 2017-04-04 13:43 | CONSULT ---
[facility] Psychiatric Consult - Data Date of interview: 04/04/17 Admission source: [facility] Identifying data: This is 51 years old female with psychiatric hospitalization history intoxicated with: Alcohol, Heroin and Nicotine, history of Cocaine abuse as well Substance Abuse History: Smoking history: Current every day smoker. Have you smoked in the past 12 months: Yes. Aproximately how many cigarettes per day: 20. Hx Chewing Tobacco Use: No. Initiated information on smoking cessation: Yes. 'Breaking Loose' booklet given: 04/03/17. - Substance & Tx. History. Hx Alcohol Use: Yes. Hx Substance Use: Yes. Substance Use Type: Alcohol, Heroin. - Substances Abused. Alcohol-vodka/beer. Route: Oral. Frequency: Daily. Amount used: 2 pts./1-6 pk. Age of first use: 20. Date of Last Use: . Heroin. Route: Inhalation. Frequency: Daily. Amount used: 12 bags. Age of first use: 20. Date of Last Use: Medical History: Asthma, GERD, HepC+, Psychiatric History: Patient reports to carry Bipolar disordedr with most reecent psychiatric admission on more then 5 years ago, reports currently stable on: Remeron 15mg po qhs. Seroquel 50mg po qhs. Prazosin 5mg po bid Physical/Sexual Abuse/Trauma History: Denies Additional Comment: Remeron 15mg po qhs. Seroquel 50mg po qhs. Prazosin 5mg po bid Mental Status Exam - Mental Status Exam Cognitive Function: Fair Patient Appearance: Unkempt Mood: Apprehensive Affect: Mood Congruent Patient Behavior: Talkative Speech Pattern: Appropriate Voice Loudness: Normal Thought Process: Goal Oriented Thought Disorder: Being Controlled Hallucinations: Denies Suicidal Ideation: Denies Homicidal Ideation: Denies Insight/Judgement: Fair Sleep: Difficulty falling asleep Appetite: Weight gain Muscle strength/Tone: Normal Gait/Station: Normal Additional Comments: Remeron 15mg po qhs. Seroquel 50mg po qhs. Prazosin 5mg po bid Psychiatric Findings - Problem List ([place] 1, 2,3) (1) Alcohol dependence with uncomplicated withdrawal Current Visit: Yes Status: Chronic (2) Cocaine dependence Current Visit: Yes Status: Chronic (3) Nicotine dependence Current Visit: Yes Status: Chronic Qualifiers: Nicotine product type: cigarettes Substance use status: uncomplicated Qualified Code(s): F17.210 - Nicotine dependence, cigarettes, uncomplicated (4) Opioid dependence with withdrawal Current Visit: Yes Status: Chronic (5) Drug-induced mood disorder Current Visit: Yes Status: Acute (6) Bipolar disorder Current Visit: Yes Status: Acute - Initial Treatment Plan Initial Treatment Plan: Remeron 15mg po qhs. Seroquel 50mg po qhs. Prazosin 5mg po bid
[2017-04-04 14:36] LABS: PLATELET ESTIMATE ADEQUATE (NORMAL)
[2017-04-04 14:37] LABS: PLATELET COMMENT2 FEW LARGE PLTS
[2017-04-04] MEDS: THIAMINE HCL 100 MG TABLET (FP) PO SCH (22:15)
[2017-04-04] MEDS: QUEtiapine FUMARATE 50 MG TABLET PO SCH (22:15)
[2017-04-04] MEDS: MIRTAZAPINE 15 MG TABLET (FP) PO SCH (22:15)
[2017-04-05] MEDS: chlordiazePOXIDE HCL 25 MG CAPSULE PO SCH ×2 (05:58→10:25)
--- NOTE | 2017-04-05 06:45 | PN ---
BHS Progress Note Note: PT C/O L ELBOW SWELLING AND PAIN. REPORTS FALL 2 DAYS AGO PRIOR TO ADMISSION. PT NOT AVAILABLE FOR EXAM IN SHOWER [facility] ELBOW XRAY
--- NOTE | 2017-04-05 10:20 | PN ---
S CIWA - CIWA Score Nausea/Vomitin Muscle Tremors: 3 Anxiety: 3 Agitation: 2 Paroxysmal Sweats: 1-Minimal Palms Moist Orientation: 0-Oriented Tacttile Disturbances: 1-Very Mild Itch/Numbness Auditory Disturbances: 1-Very Mild Visual Disturbances: 1-Very Mild Sensitivity Headache: 2-Mild CIWA-Ar Total Score: 17 BHS Progress Note (SOAP) Subjective: ALERT,IRRITABLE,ANXIOUS,INTERRUPTED SLEEP,TREMOR,PAIN IN LEFT ELBOW,STATED FELL 2 DAYS PRIOR TO COME FOR DETOX Objective: 04/05/17 10:17 Vital Signs Temperature 98.6 F 04/05/17 06:00 Pulse Rate 91 H 04/05/17 07:13 Respiratory Rate 18 04/05/17 07:13 Blood Pressure 153/97 04/05/17 07:13 O2 Sat by Pulse Oximetry (%) 04/05/17 10:17 Vital Signs Temperature 98.6 F 04/05/17 06:00 Pulse Rate 91 H 04/05/17 07:13 Respiratory Rate 18 04/05/17 07:13 Blood Pressure 153/97 04/05/17 07:13 O2 Sat by Pulse Oximetry (%) Laboratory Last Values WBC 8.9 K/mm3 (4.0-10.0) D 04/04/17 06:00 RBC 4.61 M/mm3 (3.60-5.2) 04/04/17 06:00 Hgb 12.1 GM/dL (10.7-15.3) 04/04/17 06:00 Hct 37.5 % (32.4-45.2) 04/04/17 06:00 MCV 81.5 fl (80-96) 04/04/17 06:00 MCHC 32.3 g/dl (32.0-36.0) 04/04/17 06:00 RDW 17.8 % (11.6-15.6) H D 04/04/17 06:00 Plt Count No Result Required. 04/04/17 06:00 MPV 9.8 fl (7.5-11.1) 04/04/17 06:00 Platelet Estimate Adequate (NORMAL) 04/04/17 06:00 Platelet Comment Mod plt clumping 04/04/17 06:00 Platelet Comment Few large plts 04/04/17 06:00 Sodium 139 mmol/L (136-145) 04/04/17 06:00 Potassium 3.9 mmol/L (3.5-5.1) 04/04/17 06:00 Chloride 102 mmol/L (98-107) 04/04/17 06:00 Carbon Dioxide 27 mmol/L (21-32) 04/04/17 06:00 Anion Gap 10 (8-16) 04/04/17 06:00 BUN 12 mg/dL (7-18) 04/04/17 06:00 Creatinine 0.9 mg/dL (0.55-1.02) 04/04/17 06:00 Creat Clearance w eGFR > 60 (>60) 04/04/17 06:00 Random Glucose 126 mg/dL (74-106) H D 04/04/17 06:00 Calcium 9.5 mg/dL (8.5-10.1) 04/04/17 06:00 Total Bilirubin 0.4 mg/dL (0.2-1.0) 04/04/17 06:00 AST 45 U/L (15-37) H 04/04/17 06:00 ALT 39 U/L (12-78) D 04/04/17 06:00 Alkaline Phosphatase 71 U/L (45-117) 04/04/17 06:00 Total Protein 7.9 g/dl (6.4-8.2) 04/04/17 06:00 Albumin 3.8 g/dl (3.4-5.0) 04/04/17 06:00 RPR Titer Nonreactive (NONREACTIVE) D 04/04/17 06:00 Assessment: 04/05/17 10:18 WITHDRAWAL SYMPTOM 04/05/17 10:20 LEFT ELBOW WITH PAIN,MOVEMENT NO LIMITATION,PAIN ON MOVEMENT,WILL DO XRAY LEFT ELBOW TODAY Plan: CONTINUE DETOX,FASTING BLOOD GLUCOSE IN AM,X RAY LEFT ELBOW
[2017-04-05] MEDS: amLODIPine BESYLATE 10 MG TABLET (FP) PO SCH (10:25)
[2017-04-05] MEDS: METHADONE HCL 5 MG TABLET (FOR DETOX USE ONLY) PO SCH (10:25)
[2017-04-05] MEDS: HYDROCHLOROTHIAZIDE 25 MG TABLET (FP) PO SCH (10:25)
[2017-04-05] MEDS: PANTOPRAZOLE 40 MG TABLET (FP) PO SCH (10:25)
[2017-04-05] MEDS: PRAZOSIN HCL 5 MG CAPSULE PO SCH ×2 (10:25→22:36)
[2017-04-05] MEDS: PRENATAL VITAMINS W/ FOLIC ACID TABLET (FP) PO SCH (10:25)
[2017-04-05] MEDS: NICOTINE 21 MG/24 HOURS TOPICAL PATCH TD SCH (10:26)
[2017-04-05] MEDS: NICOTINE POLACRILEX 4 MG GUM BUC PRN ×3 (10:29→22:38)
[2017-04-05 16:09] LABS: URINE APPEARANCE CLEAR; URINE BILIRUBIN NEGATIVE (NEGATIVE); URINE BLOOD NEGATIVE (NEGATIVE); URINE COLOR STRAW; URINE GLUCOSE (UA) NEGATIVE (NEGATIVE); URINE KETONE NEGATIVE (NEGATIVE); URINE LEUK ESTERASE NEGATIVE (NEGATIVE); URINE NITRITE NEGATIVE (NEGATIVE); URINE PROTEIN NEGATIVE (NEGATIVE); URINE UROBILINOGEN NEGATIVE E.U./dl (0.2-1.0)
[2017-04-05] MEDS: chlordiazePOXIDE 5 MG CAPSULE PO SCH ×2 (17:47→22:35)
[2017-04-05] MEDS: QUEtiapine FUMARATE 50 MG TABLET PO SCH (22:35)
[2017-04-05] MEDS: MIRTAZAPINE 15 MG TABLET (FP) PO SCH (22:36)
[2017-04-05] MEDS: THIAMINE HCL 100 MG TABLET (FP) PO SCH (22:36)
[2017-04-06] MEDS: chlordiazePOXIDE 5 MG CAPSULE PO SCH ×2 (05:36→10:36)
[2017-04-06] MEDS: NICOTINE POLACRILEX 4 MG GUM BUC PRN ×3 (05:37→17:25)
[2017-04-06] MEDS: PRENATAL VITAMINS W/ FOLIC ACID TABLET (FP) PO SCH (10:36)
[2017-04-06] MEDS: METHADONE HCL 5 MG TABLET (FOR DETOX USE ONLY) PO SCH (10:36)
[2017-04-06] MEDS: PANTOPRAZOLE 40 MG TABLET (FP) PO SCH (10:36)
[2017-04-06] MEDS: HYDROCHLOROTHIAZIDE 25 MG TABLET (FP) PO SCH (10:36)
[2017-04-06] MEDS: amLODIPine BESYLATE 10 MG TABLET (FP) PO SCH (10:36)
[2017-04-06] MEDS: PRAZOSIN HCL 5 MG CAPSULE PO SCH ×2 (10:37→22:10)
[2017-04-06] MEDS: NICOTINE 21 MG/24 HOURS TOPICAL PATCH TD SCH (10:37)
--- NOTE | 2017-04-06 11:53 | PN ---
S Progress Note (SOAP) Subjective: ALERT,IRRITABLE,ANXIOUS,INTERRUPTED SLEEP Objective: 04/06/17 11:52 Vital Signs Temperature 98.2 F 04/06/17 10:26 Pulse Rate 94 H 04/06/17 10:26 Respiratory Rate 18 04/06/17 10:26 Blood Pressure 145/88 04/06/17 10:26 O2 Sat by Pulse Oximetry (%) Assessment: 04/06/17 11:53 WITHDRAWAL SYMPTOM 04/06/17 11:54 XRAY OF LEFT ELBOW ON 04/05/17 NO ACUTE BONY ABNORMALITY Plan: CONTINUE DETOX,
[2017-04-06] MEDS: chlordiazePOXIDE HCL 10 MG CAPSULE PO SCH ×2 (17:25→22:09)
[2017-04-06] MEDS: MIRTAZAPINE 15 MG TABLET (FP) PO SCH (22:09)
[2017-04-06] MEDS: THIAMINE HCL 100 MG TABLET (FP) PO SCH (22:09)
[2017-04-06] MEDS: QUEtiapine FUMARATE 50 MG TABLET PO SCH (22:10)
[2017-04-07] MEDS: chlordiazePOXIDE HCL 10 MG CAPSULE PO SCH ×2 (05:27→10:18)
[2017-04-07] MEDS ORDERED: METHADONE HCL 10 MG TABLET (FOR DETOX USE ONLY) PO SCH (10:00)
--- NOTE | 2017-04-07 10:08 | PN ---
BHS Progress Note (SOAP) Subjective: ALERT,INTERRUPTED SLEEP Objective: 04/07/17 10:07 Vital Signs Temperature 97.9 F 04/07/17 10:07 Pulse Rate 99 H 04/07/17 10:07 Respiratory Rate 16 04/07/17 10:07 Blood Pressure 137/83 04/07/17 10:07 O2 Sat by Pulse Oximetry (%) Assessment: 04/07/17 10:08 WITHDRAWAL SYMPTOM Plan: CONTINUE DETOX,DISCHARGE IN AM
[2017-04-07] MEDS: PANTOPRAZOLE 40 MG TABLET (FP) PO SCH (10:18)
[2017-04-07] MEDS: PRENATAL VITAMINS W/ FOLIC ACID TABLET (FP) PO SCH (10:18)
[2017-04-07] MEDS: HYDROCHLOROTHIAZIDE 25 MG TABLET (FP) PO SCH (10:19)
[2017-04-07] MEDS: amLODIPine BESYLATE 10 MG TABLET (FP) PO SCH (10:19)
[2017-04-07] MEDS: PRAZOSIN HCL 5 MG CAPSULE PO SCH ×2 (10:19→22:20)
[2017-04-07] MEDS: NICOTINE 21 MG/24 HOURS TOPICAL PATCH TD SCH (10:19)
[2017-04-07] MEDS: NICOTINE POLACRILEX 4 MG GUM BUC PRN ×2 (10:22→17:38)
[2017-04-07] MEDS: THIAMINE HCL 100 MG TABLET (FP) PO SCH (22:20)
[2017-04-07] MEDS: MIRTAZAPINE 15 MG TABLET (FP) PO SCH (22:20)
[2017-04-07] MEDS: QUEtiapine FUMARATE 50 MG TABLET PO SCH (22:20)
[2017-04-08] MEDS ORDERED: METHADONE HCL 5 MG TABLET (FOR DETOX USE ONLY) PO SCH (06:00)
--- NOTE | 2017-04-08 08:34 | DS ---
[facility] Detox Discharge Summary Admission Date: 04/03/17 Discharge Date: 04/08/17 - History Present History: Alcohol Dependence, Cocaine Dependence, Opioid Dependence - Physical Exam Results Vital Signs: Vital Signs Temperature 97.7 F 04/08/17 06:00 Pulse Rate 94 H 04/08/17 06:00 Respiratory Rate 18 04/08/17 06:00 Blood Pressure 148/96 04/08/17 06:00 O2 Sat by Pulse Oximetry (%) - Treatment Hospital Course: Detox Protocol Followed, Detoxed Safely, Responded well, Discharged Condition Good, Rehab Referral Accepted - Medication Discharge Medications: Ambulatory Orders Mirtazapine [Remeron -] 15 mg PO HS #30 tablet 05/08/14 Albuterol Sulfate Inhaler - [Ventolin HFA Inhaler -] 2 inh PO Q4H PRN #1 inh Amlodipine Besylate [Norvasc -] 10 mg PO DAILY #30 tablet 05/11/14 Hydrochlorothiazide [Hctz -] 25 mg PO DAILY #30 tablet 05/11/14 Pantoprazole Sodium [Protonix -] 40 mg PO DAILY #30 tablet.ec 05/11/14 Mirtazapine [Remeron -] 15 mg PO HS #30 tablet 04/04/17 Prazosin HCl [Minipress -] 5 mg PO BID #60 cap 04/04/17 Quetiapine Fumarate [Seroquel -] 50 mg PO HS #30 tablet 04/04/17 - Diagnosis (1) Alcohol dependence with uncomplicated withdrawal Current Visit: Yes Status: Chronic (2) Asthma Current Visit: Yes Status: Chronic Qualifiers: Asthma severity: mild intermittent Asthma complication type: uncomplicated Qualified Code(s): J45.20 - Mild intermittent asthma, uncomplicated (3) Cocaine dependence Current Visit: Yes Status: Chronic (4) GERD (gastroesophageal reflux disease) Current Visit: Yes Status: Chronic Qualifiers: Esophagitis presence: esophagitis presence not specified Qualified Code(s): K21.9 - Gastro-esophageal reflux disease without esophagitis (5) HTN (hypertension) Current Visit: Yes Status: Chronic Qualifiers: Hypertension type: essential hypertension Qualified Code(s): I10 - Essential (primary) hypertension (6) Hepatitis C carrier Current Visit: Yes Status: Chronic (7) Nicotine dependence Current Visit: Yes Status: Chronic Qualifiers: Nicotine product type: cigarettes Substance use status: uncomplicated Qualified Code(s): F17.210 - Nicotine dependence, cigarettes, uncomplicated (8) Opioid dependence with withdrawal Current Visit: Yes Status: Chronic - AMA Did Patient Leave Against Medical Advice: No
[2017-04-08] MEDS: NICOTINE POLACRILEX 4 MG GUM BUC PRN (09:50)
[2017-04-08] MEDS: PRENATAL VITAMINS W/ FOLIC ACID TABLET (FP) PO SCH (10:30)
[2017-04-08] MEDS: amLODIPine BESYLATE 10 MG TABLET (FP) PO SCH (10:30)
[2017-04-08] MEDS: NICOTINE 21 MG/24 HOURS TOPICAL PATCH TD SCH (10:30)
[2017-04-08] MEDS: HYDROCHLOROTHIAZIDE 25 MG TABLET (FP) PO SCH (10:30)
[2017-04-08] MEDS: PANTOPRAZOLE 40 MG TABLET (FP) PO SCH (10:30)
[2017-04-08] MEDS: PRAZOSIN HCL 5 MG CAPSULE PO SCH ×2 (10:30→22:55)
--- NOTE | 2017-04-08 10:53 | PN ---
BHS Progress Note (SOAP) Subjective: feeling better very little sweats Objective: 04/08/17 10:51 Vital Signs Temperature 97.4 F L 04/08/17 09:36 Pulse Rate 95 H 04/08/17 09:36 Respiratory Rate 20 04/08/17 09:36 Blood Pressure 135/87 04/08/17 09:36 O2 Sat by Pulse Oximetry (%) awake/alert ambulating no acute distress Assessment: 04/08/17 10:52 no withdrawals noted Plan: continue to monitor d/c in am
[2017-04-08] MEDS: THIAMINE HCL 100 MG TABLET (FP) PO SCH (22:37)
[2017-04-08] MEDS: QUEtiapine FUMARATE 50 MG TABLET PO SCH (22:37)
[2017-04-08] MEDS: MIRTAZAPINE 15 MG TABLET (FP) PO SCH (22:37)
--- NOTE | 2017-04-09 08:11 | PN ---
S Progress Note (SOAP) Subjective: ALERT,NO COMPLAINT Objective: 04/09/17 08:09 Vital Signs Temperature 98.1 F 04/09/17 06:00 Pulse Rate 92 H 04/09/17 06:00 Respiratory Rate 18 04/09/17 06:00 Blood Pressure 140/94 04/09/17 06:00 O2 Sat by Pulse Oximetry (%) Assessment: 04/09/17 08:10 DETOX COMPLETED.NO WITHDRAWAL SYMPTOM Plan: DISCHARGE TODAY,FOLLOW UP WITH AFTER CARE PROGRAM ARRANGEMENT
--- NOTE | 2017-04-09 08:15 | DS ---
[facility] Detox Discharge Summary Admission Date: 04/03/17 Discharge Date: 04/09/17 - History Present History: Alcohol Dependence, Cocaine Dependence Additional Comments: FOLLOW UP WITH AFTER CARE PROGRAM ARRANGEMENT AND TO SEE PMD FOR MEDICAL PROBLEM Pertinent Past History: ASTHMA GERD HYPERTENSION HEPATITIS C NICOTINE DEPENDENCE - Physical Exam Results Vital Signs: Vital Signs Temperature 98.1 F 04/09/17 06:00 Pulse Rate 92 H 04/09/17 06:00 Respiratory Rate 18 04/09/17 06:00 Blood Pressure 140/94 04/09/17 06:00 O2 Sat by Pulse Oximetry (%) Pertinent Admission Physical Exam Findings: WITHDRAWAL SYMPTOM - Treatment Hospital Course: Detox Protocol Followed, Detoxed Safely, Responded well, Discharged Condition Good, Rehab Referral Accepted Patient has Accepted a Rehab Referral to: [facility] - Medication Discharge Medications: Ambulatory Orders Mirtazapine [Remeron -] 15 mg PO HS #30 tablet 05/08/14 Albuterol Sulfate Inhaler - [Ventolin HFA Inhaler -] 2 inh PO Q4H PRN #1 inh Amlodipine Besylate [Norvasc -] 10 mg PO DAILY #30 tablet 05/11/14 Hydrochlorothiazide [Hctz -] 25 mg PO DAILY #30 tablet 05/11/14 Pantoprazole Sodium [Protonix -] 40 mg PO DAILY #30 tablet.ec 05/11/14 Mirtazapine [Remeron -] 15 mg PO HS #30 tablet 04/04/17 Prazosin HCl [Minipress -] 5 mg PO BID #60 cap 04/04/17 Quetiapine Fumarate [Seroquel -] 50 mg PO HS #30 tablet 04/04/17 - AMA Did Patient Leave Against Medical Advice: No
[2017-04-09 09:40] VITALS: BP 109/71; PULSE 103; TEMP 98.2
[2017-04-09] MEDS: HYDROCHLOROTHIAZIDE 25 MG TABLET (FP) PO SCH (10:02)
[2017-04-09] MEDS: amLODIPine BESYLATE 10 MG TABLET (FP) PO SCH (10:02)
[2017-04-09] MEDS: PRENATAL VITAMINS W/ FOLIC ACID TABLET (FP) PO SCH (10:02)
[2017-04-09] MEDS: NICOTINE 21 MG/24 HOURS TOPICAL PATCH TD SCH (10:02)
[2017-04-09] MEDS: PANTOPRAZOLE 40 MG TABLET (FP) PO SCH (10:02)
[2017-04-09] MEDS: PRAZOSIN HCL 5 MG CAPSULE PO SCH (10:05)
[2017-04-09] MEDS: NICOTINE POLACRILEX 4 MG GUM BUC PRN (10:18)
== END 2017-04-09 10:30 | disposition other institution (70) | DRG 773 ==
LOC: YASAS 10:29 → Y6N 15:15
PROVIDERS: ADMIT Internal Medicine Addiction Medicine; ATTEND Internal Medicine Addiction Medicine
PROC: HZ2ZZZZ Detoxification Services for Substance Abuse Treatment (ICD-10-PCS; principal; 2017-04-09)
DX: F11.23 Opioid dependence with withdrawal (principal); F10.230 Alcohol dependence with withdrawal, uncomplicated; F14.20 Cocaine dependence, uncomplicated; F17.210 Nicotine dependence, cigarettes, uncomplicated; F19.24 Other psychoactive substance dependence with psychoactive substance-induced mood disorder; F31.9 Bipolar disorder, unspecified; B18.2 Chronic viral hepatitis C; I10 Essential (primary) hypertension; J45.20 Mild intermittent asthma, uncomplicated; K21.9 Gastro-esophageal reflux disease without esophagitis
CPT/HCPCS: 36415; 73070-TC-LT; 80053; 81003; 82947; 85027; 86593; 93005; 93010

== ENCOUNTER 2017-04-09 10:37 | Inpatient (IN) | payer OTHER ==
[2017-04-09 11:34] VITALS: BMI 220.7
[2017-04-09] MEDS ORDERED: LOPERAMIDE HCL 2 MG CAPSULE PO PRN (11:55)
[2017-04-09] MEDS ORDERED: MAG HYDROX/AL HYDROX/SIMETH 30 ML UNIT-DOSE CUP PO PRN (11:55)
[2017-04-09] MEDS ORDERED: diphenhydrAMINE HCL 50 MG CAPSULE PO PRN (11:55)
[2017-04-09] MEDS ORDERED: hydrOXYzine PAMOATE 50 MG CAPSULE (FP) PO PRN (11:55)
[2017-04-09] MEDS ORDERED: MAGNESIUM HYDROX 2400MG/30ML ORAL SUSPENSION 30 ML CUP PO PRN (11:55)
[2017-04-09] MEDS ORDERED: MENTHOL/PHENOL 1 EACH UD MM PRN (11:55)
[2017-04-09] MEDS ORDERED: P-EPHED 60MG/TRIPROLIDI 2.5MG TABLET PO PRN (11:55)
[2017-04-09] MEDS ORDERED: IBUPROFEN 400 MG TABLET (FP) PO PRN (11:55)
[2017-04-09] MEDS ORDERED: guaiFENesin/D-METHORPHAN HB 10 ML UNIT-DOSE CUPS PO PRN (11:55)
[2017-04-09] MEDS ORDERED: ACETAMINOPHEN 325 MG TABLET (FP) PO PRN (11:55)
[2017-04-09] MEDS ORDERED: MAGNESIUM CITRATE 300 ML BOTTLE PO PRN (11:55)
[2017-04-09] MEDS ORDERED: ALBUTEROL SO4 6.7 GM HFA INHALER IH PRN (11:56)
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
--- NOTE | 2017-04-09 16:21 | HP ---
[facility] Rehab Assess/Revision - Admission History Admitted to Rehab from: [facility] [place] Date of Admission to Rehab: 04/09/17 - Vital signs Vital Signs: Vital Signs Period Temp Pulse Resp BP Sys/Marie Pulse Ox Last 24 Hr 99.7 F 101 18 148/89 - Findings Detox History & Physical reviewed: Yes Concur with findings: Yes Comments/Additional Findings: tranferred from detox to rehab admission as per protocol
[2017-04-09] MEDS ORDERED: QUEtiapine FUMARATE 50 MG TABLET PO SCH (22:00)
[2017-04-09] MEDS ORDERED: THIAMINE HCL 100 MG TABLET (FP) PO SCH (22:00)
[2017-04-09] MEDS ORDERED: MIRTAZAPINE 15 MG TABLET (FP) PO SCH (22:00)
[2017-04-09] MEDS ORDERED: PRAZOSIN HCL 1 MG CAPSULE PO SCH (22:00)
[2017-04-10 06:56] VITALS: TEMP 98.3
[2017-04-10] MEDS: NICOTINE POLACRILEX 4 MG GUM BUC PRN ×2 (07:30→10:18)
[2017-04-10] MEDS ORDERED: HYDROCHLOROTHIAZIDE 25 MG TABLET (FP) PO SCH (10:00)
[2017-04-10] MEDS ORDERED: NICOTINE 21 MG/24 HOURS TOPICAL PATCH TD SCH (10:00)
[2017-04-10] MEDS ORDERED: PANTOPRAZOLE 40 MG TABLET (FP) PO SCH (10:00)
[2017-04-10] MEDS ORDERED: PRENATAL VITAMINS W/ FOLIC ACID TABLET (FP) PO SCH (10:00)
[2017-04-10] MEDS ORDERED: amLODIPine BESYLATE 10 MG TABLET (FP) PO SCH (10:00)
[2017-04-10 10:10] VITALS: BP 151/85; PULSE 101
== END 2017-04-10 15:37 | disposition left against medical advice (07) | DRG 770 ==
LOC: YASAS 10:37 → Y3W 10:38
PROVIDERS: ADMIT Psychiatry & Neurology Psychiatry; ATTEND Psychiatry & Neurology Psychiatry
PROC: HZ42ZZZ Group Counseling for Substance Abuse Treatment, Cognitive-Behavioral (ICD-10-PCS; principal; 2017-04-10)
DX: F11.23 Opioid dependence with withdrawal (principal); F10.230 Alcohol dependence with withdrawal, uncomplicated; F17.210 Nicotine dependence, cigarettes, uncomplicated; F25.9 Schizoaffective disorder, unspecified; F43.10 Post-traumatic stress disorder, unspecified; I10 Essential (primary) hypertension; K21.9 Gastro-esophageal reflux disease without esophagitis; B18.2 Chronic viral hepatitis C

== ENCOUNTER 2017-12-23 08:47 | Inpatient (IN) | payer OTHER ==
[2017-12-23 09:18] VITALS: BMI 23.8
--- NOTE | 2017-12-23 11:33 | HP ---
COWS - Scale Resting Pulse: 1= [place] 81-100 Sweatin= Chills/Flushing Restless Observation: 1= Difficult to Sit Still Pupil Size: 1= Pupils >than Normal Bone or Joint Aches: 1= Mild Discomfort Runny Nose/ Eye Tearin= Nasal Congestion GI Upset > 30mins: 2= Nausea/Diarrhea Tremor Observation: 2= Slight Tremor Visible Yawning Observation: 1= 1-2x During Session Anxiety or Irritability: 2=Irritable/Anxious Goose Flesh Skin: 3=Piloerection COWS Score: 16 CIWA Score - CIWA Score Nausea/Vomitin Muscle Tremors: 3 Anxiety: 4-Mod. Anxious/Guarded Agitation: 1-Slight > Activity Paroxysmal Sweats: 2 Orientation: 0-Oriented Tacttile Disturbances: 2-Mild Itch/Numbness/Burn Auditory Disturbances: 0-None Visual Disturbances: 0-None Headache: 0-None Present CIWA-Ar Total Score: 15 Admission ROS BHS - HPI Chief Complaint: alcohol an heroin withdrawal sx Allergies/Adverse Reactions: Allergies Allergy/AdvReac Type Severity Reaction Status Date / Time No Known Allergies Allergy Verified 12/23/17 09:25 History of Present Illness: 52 yo f w h/o oud usig heroin and alcohol daily, smokes crack cocaine, nciotien dependenc 2 PPD reports withdrawal sx when he does nto use requesting inpatietn detoxification. no suciide attempts in past, no si, no h/o seizures or DTs. PMHX HTn on meds, dperession on remeron. Exam Limitations: No Limitations - Ebola screening Have you traveled outside of the country in the last 21 days: No Have you had contact with anyone from an Ebola affected area: No Have you been sick,other than usual withdrawal symptoms: No Do you have a fever: No - Review of Systems Constitutional: Chills, Diaphoresis, Night Sweats, Changes in sleep, Unintentional Wgt. Loss EENT: reports: Tearing, Nose Congestion Respiratory: reports: Cough (smokers cough) Cardiac: reports: No Symptoms Reported GI: reports: Diarrhea, Nausea, Poor Appetite, Poor Fluid Intake, Abdominal cramping : reports: No Symptoms Reported Musculoskeletal: reports: Back Pain (withdrawal sx), Muscle Pain Integumentary: reports: Flushing, Sweating Neuro: reports: Numbness, Tingling, Tremors Endocrine: reports: Increased Thirst Hematology: reports: No Symptoms Reported Psychiatric: reports: Judgement Intact, Mood/Affect Appropiate, Orientated x3, Anxious, Depressed Other Systems: Reviewed and Negative Patient History - Patient Medical History Hx Anemia: No Hx Asthma: Yes (albuterol) Hx Chronic Obstructive Pulmonary Disease (COPD): No Hx Cancer: No Hx Cardiac Disorders: No Hx Congestive Heart Failure: No Hx Hypertension: Yes (ON MEDS.) Hx Hypercholesterolemia: No Hx Pacemaker: No HX Cerebrovascular Accident: No Hx Seizures: No Hx Dementia: No Hx Diabetes: No Hx Gastrointestinal Disorders: Yes (GERD) Hx Liver Disease: No Hx Genitourinary Disorders: No Hx Sexually Transmitted Disorders: No Hx Renal Disease (ESRD): No Hx Thyroid Disease: No Hx Human Immunodeficiency Virus (HIV): No Hx Hepatitis C: Yes (treated x 3 months) Hx Depression: Yes Hx Suicide Attempt: No (no SI) Hx Bipolar Disorder: No Hx Schizophrenia: No - Patient Surgical History Past Surgical History: No Hx Neurologic Surgery: No Hx Cataract Extraction: No Hx Cardiac Surgery: No Hx Lung Surgery: No Hx Breast Surgery: No Hx Breast Biopsy: No Hx Abdominal Surgery: No Hx Appendectomy: No Hx Cholecystectomy: No Hx Genitourinary Surgery: No Hx Section: No Hx Orthopedic Surgery: No Anesthesia Reaction: No - PPD History Previous Implant?: Yes Documented Results: Negative w/proof Date: 01/21/17 Results: 0MM PPD to be Administered?: No - Reproductive History Patient is a Female of Child Bearing Age (11 -55 yrs old): Yes Last Menstrual Period: 12/23/17 Patient : No - Smoking Cessation Smoking history: Current every day smoker Have you smoked in the past 12 months: Yes Aproximately how many cigarettes per day: 30 Hx Chewing Tobacco Use: No Initiated information on smoking cessation: Yes 'Breaking Loose' booklet given: 12/23/17 - Substance & Tx. History Hx Alcohol Use: Yes Hx Substance Use: Yes Substance Use Type: Alcohol, Cocaine, Heroin, Opiates Hx Substance Use Treatment: Yes ([facility] - Substances Abused Heroin Route: Inhalation Frequency: Daily Amount used: 20 BAGS Age of first use: 22 Date of Last Use: 12/22/17 Crack Route: Smoking Frequency: 1-3 times last 30 days Amount used: $20 Age of first use: 26 Date of Last Use: 12/22/17 ETOH Route: Oral Frequency: Daily Amount used: 2-6PK BEER, 1 PINT VODKA Age of first use: 22 Date of Last Use: 12/23/17 Family Disease History - Family Disease History Family Disease History: Other: Father ( - murdered), Mother (, alzheimers) Admission Physical Exam [facility] - Vital Signs Vital Signs: Vital Signs - 24 hr 12/23/17 09:15 Temperature 97.1 F L Pulse Rate 97 H Respiratory 20 Rate Blood Pressure 156/99 - Physical General Appearance: Yes: Nourished, Appropriately Dressed, Disheveled, Mild Distress, Thin, Tremorous, Irritable, Sweating, Anxious HEENTM: Yes: Within Normal Limits, EOMI, Hearing grossly Normal, Normal ENT Inspection, Normal Voice, [place], Pharynx Normal, Nasal Congestion, Rhinorrhea Respiratory: Yes: Within Normal Limits, Chest Non-Tender, Lungs Clear, Normal Breath Sounds, No Respiratory Distress, No Accessory Muscle Use Neck: Yes: Within Normal Limits, No masses,lesions,Nodules, Supple, Trachea in good position Breast: Yes: Breast Exam Deferred Cardiology: Yes: Within Normal Limits, Regular Rhythm, Regular Rate, S1, S2 Abdominal: Yes: Within Normal Limits, Normal Bowel Sounds, Non Tender, Flat, Soft Genitourinary: Yes: Within Normal Limits Back: Yes: Within Normal Limits, Normal Inspection Musculoskeletal: Yes: Within Normal Limits, full range of Motion, Gait Steady, Pelvis Stable Extremities: Yes: Normal Capillary Refill, Normal Range of Motion, Tremors Neurological: Yes: supervisor fur dressing II-XII NML intact, Fully Oriented, Alert, Motor Strength 5/5, Normal Response, Depressed Affect Integumentary: Yes: Normal Color, Warm, Diaphoresis, Moist Lymphatic: Yes: Within Normal Limits - Addiitonal Findings: withdrawal sx - Diagnostic (1) Drug-induced mood disorder Current Visit: No Status: Acute (2) PTSD (post-traumatic stress disorder) Current Visit: No Status: Acute (3) Schizoaffective disorder Current Visit: No Status: Acute (4) Alcohol dependence with uncomplicated withdrawal Current Visit: No Status: Chronic (5) Asthma Current Visit: No Status: Chronic Qualifiers: Asthma severity: mild intermittent Asthma complication type: uncomplicated (6) Cocaine dependence Current Visit: No Status: Chronic (7) GERD (gastroesophageal reflux disease) Current Visit: No Status: Chronic Qualifiers: Esophagitis presence: esophagitis presence not specified Qualified Code(s) : K21.9 - Gastro-esophageal reflux disease without esophagitis (8) HTN (hypertension) Current Visit: No Status: Chronic Qualifiers: Hypertension type: essential hypertension Qualified Code(s): I10 - Essential (primary) hypertension (9) Hepatitis C carrier Current Visit: No Status: Chronic Comment: received tx. (10) Nicotine dependence Current Visit: No Status: Chronic Qualifiers: Nicotine product type: cigarettes Substance use status: uncomplicated Qualified Code(s): F17.210 - Nicotine dependence, cigarettes, uncomplicated (11) Opioid dependence with withdrawal Current Visit: No Status: Chronic Cleared for Admission S - Detox or Rehab [facility] Level of Care: Medically Managed Detox Regimen/Protocol: Methadone/Librium BHS Breath Alcohol Content Breath Alcohol Content: 0 Urine Pregancy Test - Result Urine Test Results: Negative- NO Line Present Urine Drug Screen - Results Drug Screen Negative: No Urine Drug Screen Results: LISSET-Cocaine, OPI-Opiates, BZO-Benzodiazepines, MTD- Methadone
[2017-12-23] MEDS ORDERED: hydrOXYzine PAMOATE 50 MG CAPSULE (FP) PO PRN (11:50)
[2017-12-23] MEDS ORDERED: MAGNESIUM CITRATE 300 ML BOTTLE PO PRN (11:50)
[2017-12-23] MEDS ORDERED: MENTHOL/PHENOL 1 EACH UD MM PRN (11:50)
[2017-12-23] MEDS ORDERED: guaiFENesin/D-METHORPHAN HB 10 ML UNIT-DOSE CUPS PO PRN (11:50)
[2017-12-23] MEDS ORDERED: P-EPHED 60MG/TRIPROLIDI 2.5MG TABLET PO PRN (11:50)
[2017-12-23] MEDS ORDERED: LOPERAMIDE HCL 2 MG CAPSULE PO PRN (11:50)
[2017-12-23] MEDS ORDERED: MAG HYDROX/AL HYDROX/SIMETH 30 ML UNIT-DOSE CUP PO PRN (11:50)
[2017-12-23] MEDS ORDERED: ACETAMINOPHEN 325 MG TABLET (FP) PO PRN (11:50)
[2017-12-23] MEDS ORDERED: MAGNESIUM HYDROX 2400MG/30ML ORAL SUSPENSION 30 ML CUP PO PRN (11:50)
[2017-12-23] MEDS ORDERED: chlordiazePOXIDE HCL 25 MG CAPSULE PO PRN (11:50)
[2017-12-23] MEDS ORDERED: ALBUTEROL SO4 18 GM HFA INHALER IH PRN (11:58)
[2017-12-23] MEDS ORDERED: chlordiazePOXIDE HCL 25 MG CAPSULE PO ONE (12:25)
[2017-12-23] MEDS ORDERED: METHADONE HCL 10 MG TABLET (FOR DETOX USE ONLY) PO ONE ×2 (12:30→23:00)
[2017-12-23 13:42] LABS: HEMATOCRIT 35.2 % (32.4-45.2); HEMOGLOBIN 10.9 GM/dL (10.7-15.3); MCH 25.6 pg (25.7-33.7); MCHC 30.9 g/dl (32.0-36.0); MEAN CELL VOLUME 82.8 fl (80-96); MEAN PLT VOLUME 9.6 fl (7.5-11.1); PLATELET COUNT 255 K/MM3 (134-434); RBC 4.26 M/mm3 (3.60-5.2); RDW 17.8 % (11.6-15.6); WHITE BLOOD COUNT 8.1 K/mm3 (4.0-10.0)
[2017-12-23 13:59] LABS: ALBUMIN 3.8 g/dl (3.4-5.0); ANION GAP 9 (8-16); BLOOD UREA NITROGEN 17 mg/dL (7-18); CALCIUM 9.1 mg/dL (8.5-10.1); CHLORIDE 104 mmol/L (98-107); CO2 26 mmol/L (21-32); GLUCOSE,RANDOM 75 mg/dL (74-106); POTASSIUM 4.3 mmol/L (3.5-5.1); SGOT/AST 45 U/L (15-37); SODIUM 139 mmol/L (136-145)
[2017-12-23 14:01] LABS: ALK PHOS 76 U/L (45-117); BILIRUBIN,TOTAL 0.4 mg/dL (0.2-1.0); CREATININE 0.7 mg/dL (0.55-1.02); SGPT/ALT 58 U/L (12-78)
[2017-12-23] MEDS ORDERED: chlordiazePOXIDE HCL 25 MG CAPSULE ONE (14:32)
[2017-12-23] MEDS: amLODIPine BESYLATE 10 MG TABLET (FP) PO SCH (14:33)
[2017-12-23] MEDS: PANTOPRAZOLE 40 MG TABLET (FP) PO SCH (14:34)
[2017-12-23] MEDS: HYDROCHLOROTHIAZIDE 25 MG TABLET (FP) PO SCH (14:34)
[2017-12-23] MEDS: NICOTINE 21 MG/24 HOURS TOPICAL PATCH TD SCH (14:37)
[2017-12-23] MEDS: NICOTINE POLACRILEX 4 MG GUM BUC PRN ×2 (14:37→18:01)
--- NOTE | 2017-12-23 15:57 | CONSULT ---
[facility] Psychiatric Consult - Data Date of interview: 12/23/17 Admission source: [facility] Identifying data: Pt. is a 52 year old female, single, mother of eight, and currently unemployed. This is one of multiple admissions for patient. Pt. admitted to for opiate, crack, and alcohol dependece. Substance Abuse History: Following information confirmed with Ms. Lane: - Smoking Cessation. Smoking history: Current every day smoker. Have you smoked in the past 12 months: Yes. Aproximately how many cigarettes per day: 30. Hx Chewing Tobacco Use: No. Initiated information on smoking cessation: Yes. ' Breaking Loose' booklet given: 12/23/17. - Substance & Tx. History. Hx Alcohol Use: Yes. Hx Substance Use: Yes. Substance Use Type: Alcohol, Cocaine , Heroin, Opiates. Hx Substance Use Treatment: Yes ([facility] - Substances Abused. Heroin. Route: Inhalation. Frequency: Daily. Amount used: 20 BAGS. Age of first use: 22. Date of Last Use: 12/22/17. Crack. Route: Smoking. Frequency: 1-3 times last 30 days. Amount used: $20. Age of first use: 26. Date of Last Use: 12/22/17. ETOH. Route: Oral. Frequency: Daily. Amount used: 2-6PK BEER, 1 PINT VODKA. Age of first use: 22. Date of Last Use: 12/23/17 Medical History: Asthma, Hypertension, GERD, Hep C Psychiatric History: Pt. denies h/o psychiatric hospitalizations. Currently does not have an outpatient care provider. Reports last seeing a psychiatrist six months ago and was prescribed mirtazapine, seroquel. States her diagnosis are: MDD and Bipolar disorder. Pt. reports medication nonadherence (reports last taking medications 8 months ago). Pt. denies h/o suicide attemot. Pt. denies suicidal and homicidal ideation. Physical/Sexual Abuse/Trauma History: Denies. Mental Status Exam - Mental Status Exam Alert and Oriented to: Time, Place, Person Cognitive Function: Good Patient Appearance: Well Groomed Mood: Withdrawn Affect: Mood Congruent Patient Behavior: Guarded Speech Pattern: Appropriate Voice Loudness: Moderately Soft/Quiet Thought Process: Goal Oriented Thought Disorder: Not Present Hallucinations: Denies Suicidal Ideation: Denies Homicidal Ideation: Denies Insight/Judgement: Poor Sleep: Poorly Appetite: Fair Muscle strength/Tone: Normal Gait/Station: Normal Psychiatric Findings - Problem List ([place] 1, 2,3) (1) Alcohol dependence with uncomplicated withdrawal Current Visit: Yes Status: Acute (2) Cocaine dependence Current Visit: Yes Status: Acute (3) Nicotine dependence Current Visit: Yes Status: Chronic Qualifiers: Nicotine product type: cigarettes Substance use status: uncomplicated Qualified Code(s): F17.210 - Nicotine dependence, cigarettes, uncomplicated (4) Opioid dependence with withdrawal Current Visit: Yes Status: Acute (5) Insomnia Current Visit: Yes Status: Acute (6) Bipolar disorder Current Visit: No Status: Chronic Comment: Self reports. reports medication nonadherence. (7) MDD (major depressive disorder) Current Visit: No Status: Suspected Comment: Self reports. reports medication nonadherence - Initial Treatment Plan Initial Treatment Plan: Psychoeducation provided. Detoxification in progress. Seroquel 50mg qhs ordered for insomnia. Benefits and side effects discussed. Veral consent given. Will continue to monitor patient.
[2017-12-23] MEDS: PRAZOSIN HCL 5 MG CAPSULE PO SCH ×2 (16:22→22:54)
[2017-12-23 17:05] LABS: URINE APPEARANCE CLEAR; URINE BILIRUBIN NEGATIVE (NEGATIVE); URINE BLOOD 1+ (NEGATIVE); URINE COLOR LTYELLOW; URINE GLUCOSE (UA) NEGATIVE (NEGATIVE); URINE KETONE NEGATIVE (NEGATIVE); URINE LEUK ESTERASE NEGATIVE (NEGATIVE); URINE NITRITE NEGATIVE (NEGATIVE); URINE PROTEIN NEGATIVE (NEGATIVE); URINE UROBILINOGEN NEGATIVE mg/dL (0.2-1.0)
[2017-12-23] MEDS: chlordiazePOXIDE HCL 25 MG CAPSULE PO SCH ×2 (18:01→22:21)
[2017-12-23 18:59] LABS: EPI CELLS RARE /HPF (FEW); URINE BACTERIA RARE /hpf (NONE SEEN); URINE MUCUS RARE
[2017-12-23] MEDS: THIAMINE HCL 100 MG TABLET (FP) PO SCH (22:21)
[2017-12-23] MEDS: QUEtiapine FUMARATE 50 MG TABLET PO SCH (22:21)
[2017-12-24] MEDS: chlordiazePOXIDE HCL 25 MG CAPSULE PO SCH ×4 (06:14→22:38)
--- NOTE | 2017-12-24 09:03 | PN ---
S CIWA - CIWA Score Nausea/Vomitin Muscle Tremors: 3 Anxiety: 3 Agitation: 3 Paroxysmal Sweats: 3 Orientation: 0-Oriented Tacttile Disturbances: 0-None Auditory Disturbances: 0-None Visual Disturbances: 0-None Headache: 0-None Present CIWA-Ar Total Score: 15 BHS COWS - Scale Resting Pulse: 1= [place] 81-100 Sweatin= Chills/Flushing Restless Observation: 1= Difficult to Sit Still Pupil Size: 1= Pupils >than Normal Bone or Joint Aches: 1= Mild Discomfort Runny Nose/ Eye Tearin= Nasal Congestion GI Upset > 30mins: 2= Nausea/Diarrhea Tremor Observation of Outstretched Hands: 2= Slight Tremor Visible Yawning Observation: 1= 1-2x During Session Anxiety or Irritability: 2=Irritable/Anxious Goose Flesh Skin: 3=Piloerection COWS Score: 16 S Progress Note (SOAP) Subjective: nausea, sweats, interrupted sleep, anxiety, tremors Objective: 12/24/17 09:02 Vital Signs - 24 hr 12/23/17 12/23/17 12/23/17 09:15 15:30 17:56 Temperature 97.1 F L 98.8 F 99.3 F Pulse Rate 97 H 91 H 88 Respiratory 20 18 16 Rate Blood Pressure 156/99 148/91 126/67 12/23/17 12/24/17 12/24/17 21:57 00:30 03:30 Temperature 98.2 F Pulse Rate 79 Respiratory 18 18 18 Rate Blood Pressure 130/92 12/24/17 06:28 Temperature 97.9 F Pulse Rate 83 Respiratory 19 Rate Blood Pressure 124/77 Laboratory Tests 12/23/17 12/23/17 12/23/17 12:20 12:20 12:20 WBC 8.1 RBC 4.26 Hgb 10.9 Hct 35.2 MCV 82.8 MCH 25.6 L MCHC 30.9 L RDW 17.8 H Plt Count 255 MPV 9.6 Sodium 139 Potassium 4.3 Chloride 104 Carbon Dioxide 26 Anion Gap 9 BUN 17 Creatinine 0.7 Creat Clearance w eGFR > 60 Random Glucose 75 Calcium 9.1 Total Bilirubin 0.4 AST 45 H ALT 58 Alkaline Phosphatase 76 Total Protein 8.0 Albumin 3.8 Urine Color Urine Appearance Urine pH Ur Specific [place] Urine Protein Urine Glucose (UA) Urine Ketones Urine Blood Urine Nitrite Urine Bilirubin Urine Urobilinogen Ur Leukocyte Esterase Urine WBC (Auto) Urine RBC (Auto) Ur Epithelial Cells Urine Bacteria Urine Mucus RPR Titer Nonreactive 12/23/17 15:00 WBC RBC Hgb Hct MCV MCH MCHC RDW Plt Count MPV Sodium Potassium Chloride Carbon Dioxide Anion Gap BUN Creatinine Creat Clearance w eGFR Random Glucose Calcium Total Bilirubin AST ALT Alkaline Phosphatase Total Protein Albumin Urine Color Ltyellow Urine Appearance Clear Urine pH 5.0 Ur Specific [place] 1.017 Urine Protein Negative Urine Glucose (UA) Negative Urine Ketones Negative Urine Blood 1+ H Urine Nitrite Negative Urine Bilirubin Negative Urine Urobilinogen Negative Ur Leukocyte Esterase Negative Urine WBC (Auto) 1 Urine RBC (Auto) <1 Ur Epithelial Cells Rare Urine Bacteria Rare Urine Mucus Rare RPR Titer Assessment: 12/24/17 09:03 withdrawal sx, cont detox, fluids, encourage ambulation
[2017-12-24] MEDS ORDERED: METHADONE HCL 10 MG TABLET (FOR DETOX USE ONLY) PO SCH (10:00)
[2017-12-24] MEDS: PRENATAL VITAMINS W/ FOLIC ACID TABLET (FP) PO SCH (11:06)
[2017-12-24] MEDS: HYDROCHLOROTHIAZIDE 25 MG TABLET (FP) PO SCH (11:06)
[2017-12-24] MEDS: amLODIPine BESYLATE 10 MG TABLET (FP) PO SCH (11:06)
[2017-12-24] MEDS: PANTOPRAZOLE 40 MG TABLET (FP) PO SCH (11:06)
[2017-12-24] MEDS: PRAZOSIN HCL 5 MG CAPSULE PO SCH ×2 (11:07→22:38)
[2017-12-24] MEDS: NICOTINE 21 MG/24 HOURS TOPICAL PATCH TD SCH (11:07)
--- NOTE | 2017-12-24 14:10 | EKG ---
Test Reason : Blood Pressure : / mmHG Vent. Rate : 079 BPM Atrial Rate : 079 BPM P-R Int : 172 ms QRS Dur : 092 ms QT Int : 408 ms P-R-T Axes : 063 041 047 degrees QTc Int : 467 ms NORMAL SINUS RHYTHM VOLTAGE CRITERIA FOR LEFT VENTRICULAR HYPERTROPHY ABNORMAL ECG WHEN COMPARED WITH ECG OF 04-APR-2017 08:02, NO SIGNIFICANT CHANGE WAS FOUND Confirmed by MD Livier, Rony ([id number]) on 12/24/2017 2:10:41 PM Referred By: Confirmed By:Rony Maier MD
[2017-12-24] MEDS: MINERAL OIL/PETROLAT/WATER TOPICAL CREAM 113 GM JAR TP SCH (22:37)
[2017-12-24] MEDS: QUEtiapine FUMARATE 50 MG TABLET PO SCH (22:38)
[2017-12-24] MEDS: NICOTINE POLACRILEX 4 MG GUM BUC PRN (22:38)
[2017-12-24] MEDS: THIAMINE HCL 100 MG TABLET (FP) PO SCH (22:38)
[2017-12-25] MEDS: chlordiazePOXIDE HCL 25 MG CAPSULE PO SCH ×2 (05:49→10:59)
--- NOTE | 2017-12-25 09:57 | PN ---
S CIWA - CIWA Score Nausea/Vomitin-No Nausea/No Vomiting Muscle Tremors: 4-Moderate,w/Arms Extend Anxiety: 3 Agitation: 3 Paroxysmal Sweats: 1-Minimal Palms Moist Orientation: 0-Oriented Tacttile Disturbances: 0-None Auditory Disturbances: 0-None Visual Disturbances: 0-None Headache: 0-None Present CIWA-Ar Total Score: 11 BHS Progress Note (SOAP) Subjective: sweat tremor anxiety Objective: 12/25/17 09:56 Vital Signs Temperature 97.9 F 12/25/17 06:24 Pulse Rate 116 H 12/25/17 06:24 Respiratory Rate 20 12/25/17 06:24 Blood Pressure 129/74 12/25/17 06:24 O2 Sat by Pulse Oximetry (%) Laboratory Last Values WBC 8.1 K/mm3 (4.0-10.0) 12/23/17 12:20 RBC 4.26 M/mm3 (3.60-5.2) 12/23/17 12:20 Hgb 10.9 GM/dL (10.7-15.3) 12/23/17 12:20 Hct 35.2 % (32.4-45.2) 12/23/17 12:20 MCV 82.8 fl (80-96) 12/23/17 12:20 MCH 25.6 pg (25.7-33.7) L 12/23/17 12:20 MCHC 30.9 g/dl (32.0-36.0) L 12/23/17 12:20 RDW 17.8 % (11.6-15.6) H 12/23/17 12:20 Plt Count 255 K/MM3 (134-434) 12/23/17 12:20 MPV 9.6 fl (7.5-11.1) 12/23/17 12:20 Sodium 139 mmol/L (136-145) 12/23/17 12:20 Potassium 4.3 mmol/L (3.5-5.1) 12/23/17 12:20 Chloride 104 mmol/L (98-107) 12/23/17 12:20 Carbon Dioxide 26 mmol/L (21-32) 12/23/17 12:20 Anion Gap 9 (8-16) 12/23/17 12:20 BUN 17 mg/dL (7-18) 12/23/17 12:20 Creatinine 0.7 mg/dL (0.55-1.02) 12/23/17 12:20 Creat Clearance w eGFR > 60 (>60) 12/23/17 12:20 Random Glucose 75 mg/dL (74-106) 12/23/17 12:20 Calcium 9.1 mg/dL (8.5-10.1) 12/23/17 12:20 Total Bilirubin 0.4 mg/dL (0.2-1.0) 12/23/17 12:20 AST 45 U/L (15-37) H 12/23/17 12:20 ALT 58 U/L (12-78) 12/23/17 12:20 Alkaline Phosphatase 76 U/L (45-117) 12/23/17 12:20 Total Protein 8.0 g/dl (6.4-8.2) 12/23/17 12:20 Albumin 3.8 g/dl (3.4-5.0) 12/23/17 12:20 Urine Color Ltyellow 12/23/17 15:00 Urine Appearance Clear 12/23/17 15:00 Urine pH 5.0 (5.0-8.0) 12/23/17 15:00 Ur Specific [place] 1.017 (1.001-1.035) 12/23/17 15:00 Urine Protein Negative (NEGATIVE) 12/23/17 15:00 Urine Glucose (UA) Negative (NEGATIVE) 12/23/17 15:00 Urine Ketones Negative (NEGATIVE) 12/23/17 15:00 Urine Blood 1+ (NEGATIVE) H 12/23/17 15:00 Urine Nitrite Negative (NEGATIVE) 12/23/17 15:00 Urine Bilirubin Negative (NEGATIVE) 12/23/17 15:00 Urine Urobilinogen Negative mg/dL (0.2-1.0) 12/23/17 15:00 Ur Leukocyte Esterase Negative (NEGATIVE) 12/23/17 15:00 Urine WBC (Auto) 1 /hpf (3-5) 12/23/17 15:00 Urine RBC (Auto) <1 /hpf (0-3) 12/23/17 15:00 Ur Epithelial Cells Rare /HPF (FEW) 12/23/17 15:00 Urine Bacteria Rare /hpf (NONE SEEN) 12/23/17 15:00 Urine Mucus Rare 12/23/17 15:00 RPR Titer Nonreactive (NONREACTIVE) 12/23/17 12:20 lab noted Assessment: 12/25/17 09:57 withdrawal sx Plan: continue detox
[2017-12-25] MEDS ORDERED: METHADONE HCL 5 MG TABLET (FOR DETOX USE ONLY) PO SCH (10:00)
[2017-12-25] MEDS: PANTOPRAZOLE 40 MG TABLET (FP) PO SCH (10:59)
[2017-12-25] MEDS: HYDROCHLOROTHIAZIDE 25 MG TABLET (FP) PO SCH (10:59)
[2017-12-25] MEDS: PRAZOSIN HCL 5 MG CAPSULE PO SCH ×2 (10:59→22:27)
[2017-12-25] MEDS: PRENATAL VITAMINS W/ FOLIC ACID TABLET (FP) PO SCH (10:59)
[2017-12-25] MEDS: amLODIPine BESYLATE 10 MG TABLET (FP) PO SCH (11:01)
[2017-12-25] MEDS: NICOTINE 21 MG/24 HOURS TOPICAL PATCH TD SCH (11:02)
[2017-12-25] MEDS: NICOTINE POLACRILEX 4 MG GUM BUC PRN ×2 (14:44→17:22)
[2017-12-25] MEDS: chlordiazePOXIDE 5 MG CAPSULE PO SCH ×2 (17:22→22:27)
[2017-12-25] MEDS: THIAMINE HCL 100 MG TABLET (FP) PO SCH (22:27)
[2017-12-25] MEDS: QUEtiapine FUMARATE 50 MG TABLET PO SCH (22:27)
[2017-12-25] MEDS: MINERAL OIL/PETROLAT/WATER TOPICAL CREAM 113 GM JAR TP SCH (22:27)
[2017-12-25] MEDS: IBUPROFEN 400 MG TABLET (FP) PO PRN (23:00)
[2017-12-26] MEDS: IBUPROFEN 400 MG TABLET (FP) PO PRN (05:42)
[2017-12-26] MEDS: NICOTINE POLACRILEX 4 MG GUM BUC PRN (05:43)
[2017-12-26 06:30] VITALS: BP 139/92; PULSE 103; TEMP 97.9
[2017-12-26] MEDS: chlordiazePOXIDE 5 MG CAPSULE PO SCH (06:48)
--- NOTE | 2017-12-26 07:37 | DS ---
[facility] Detox Discharge Summary Admission Date: 12/23/17 Discharge Date: 12/26/17 - History Additional Comments: Patient left against medical advice. She states, " I feel better now and I lied to get in here because I needed a place to rest." Risks and consequences of patient's action reinforced. Patient verbalized understanding, signed the AMA form and left. Pertinent Past History: Withdrawal symptoms - Physical Exam Results Vital Signs: Vital Signs Temperature 97.9 F 12/26/17 06:00 Pulse Rate 103 H 12/26/17 06:00 Respiratory Rate 18 12/26/17 06:00 Blood Pressure 139/92 12/26/17 06:00 O2 Sat by Pulse Oximetry (%) Pertinent Admission Physical Exam Findings: Vital Signs Temperature 97.9 F 12/26/17 06:00 Pulse Rate 103 H 12/26/17 06:00 Respiratory Rate 18 12/26/17 06:00 Blood Pressure 139/92 12/26/17 06:00 O2 Sat by Pulse Oximetry (%) Laboratory Last Values WBC 8.1 K/mm3 (4.0-10.0) 12/23/17 12:20 RBC 4.26 M/mm3 (3.60-5.2) 12/23/17 12:20 Hgb 10.9 GM/dL (10.7-15.3) 12/23/17 12:20 Hct 35.2 % (32.4-45.2) 12/23/17 12:20 MCV 82.8 fl (80-96) 12/23/17 12:20 MCH 25.6 pg (25.7-33.7) L 12/23/17 12:20 MCHC 30.9 g/dl (32.0-36.0) L 12/23/17 12:20 RDW 17.8 % (11.6-15.6) H 12/23/17 12:20 Plt Count 255 K/MM3 (134-434) 12/23/17 12:20 MPV 9.6 fl (7.5-11.1) 12/23/17 12:20 Sodium 139 mmol/L (136-145) 12/23/17 12:20 Potassium 4.3 mmol/L (3.5-5.1) 12/23/17 12:20 Chloride 104 mmol/L (98-107) 12/23/17 12:20 Carbon Dioxide 26 mmol/L (21-32) 12/23/17 12:20 Anion Gap 9 (8-16) 12/23/17 12:20 BUN 17 mg/dL (7-18) 12/23/17 12:20 Creatinine 0.7 mg/dL (0.55-1.02) 12/23/17 12:20 Creat Clearance w eGFR > 60 (>60) 12/23/17 12:20 Random Glucose 75 mg/dL (74-106) 12/23/17 12:20 Calcium 9.1 mg/dL (8.5-10.1) 12/23/17 12:20 Total Bilirubin 0.4 mg/dL (0.2-1.0) 12/23/17 12:20 AST 45 U/L (15-37) H 12/23/17 12:20 ALT 58 U/L (12-78) 12/23/17 12:20 Alkaline Phosphatase 76 U/L (45-117) 12/23/17 12:20 Total Protein 8.0 g/dl (6.4-8.2) 12/23/17 12:20 Albumin 3.8 g/dl (3.4-5.0) 12/23/17 12:20 Urine Color Ltyellow 12/23/17 15:00 Urine Appearance Clear 12/23/17 15:00 Urine pH 5.0 (5.0-8.0) 12/23/17 15:00 Ur Specific [place] 1.017 (1.001-1.035) 12/23/17 15:00 Urine Protein Negative (NEGATIVE) 12/23/17 15:00 Urine Glucose (UA) Negative (NEGATIVE) 12/23/17 15:00 Urine Ketones Negative (NEGATIVE) 12/23/17 15:00 Urine Blood 1+ (NEGATIVE) H 12/23/17 15:00 Urine Nitrite Negative (NEGATIVE) 12/23/17 15:00 Urine Bilirubin Negative (NEGATIVE) 12/23/17 15:00 Urine Urobilinogen Negative mg/dL (0.2-1.0) 12/23/17 15:00 Ur Leukocyte Esterase Negative (NEGATIVE) 12/23/17 15:00 Urine WBC (Auto) 1 /hpf (3-5) 12/23/17 15:00 Urine RBC (Auto) <1 /hpf (0-3) 12/23/17 15:00 Ur Epithelial Cells Rare /HPF (FEW) 12/23/17 15:00 Urine Bacteria Rare /hpf (NONE SEEN) 12/23/17 15:00 Urine Mucus Rare 12/23/17 15:00 RPR Titer Nonreactive (NONREACTIVE) 12/23/17 12:20 - Medication Discharge Medications: Ambulatory Orders Hydrochlorothiazide [Hctz -] 25 mg PO DAILY #30 tablet 05/11/14 Mirtazapine [Remeron -] 15 mg PO HS #30 tablet 04/04/17 Prazosin HCl [Minipress -] 5 mg PO BID #60 cap 04/04/17 Albuterol Sulfate Inhaler - [Ventolin HFA Inhaler -] 2 inh IH Q4H PRN #1 inh Amlodipine Besylate [Norvasc -] 10 mg PO DAILY #30 tablet 04/09/17 Pantoprazole Sodium [Protonix -] 40 mg PO DAILY #30 tablet.ec 04/09/17 Quetiapine Fumarate [Seroquel -] 100 mg PO HS 04/09/17 - Diagnosis (1) Alcohol dependence with uncomplicated withdrawal Status: Chronic (2) Cocaine dependence Status: Chronic (3) Opioid dependence with withdrawal Status: Chronic (4) Asthma Status: Chronic Qualifiers: Asthma severity: mild intermittent Asthma complication type: uncomplicated (5) GERD (gastroesophageal reflux disease) Status: Chronic Qualifiers: Esophagitis presence: esophagitis presence not specified Qualified Code(s) : K21.9 - Gastro-esophageal reflux disease without esophagitis (6) HTN (hypertension) Status: Chronic Qualifiers: Hypertension type: essential hypertension Qualified Code(s): I10 - Essential (primary) hypertension (7) Hepatitis C carrier Status: Chronic (8) Nicotine dependence Status: Chronic Qualifiers: Nicotine product type: cigarettes Substance use status: uncomplicated Qualified Code(s): F17.210 - Nicotine dependence, cigarettes, uncomplicated - AMA Did Patient Leave Against Medical Advice: Yes
[2017-12-26] MEDS ORDERED: chlordiazePOXIDE HCL 10 MG CAPSULE PO SCH (17:00)
[2017-12-27] MEDS ORDERED: METHADONE HCL 10 MG TABLET (FOR DETOX USE ONLY) PO SCH (10:00)
[2017-12-28] MEDS ORDERED: METHADONE HCL 5 MG TABLET (FOR DETOX USE ONLY) PO SCH (06:00)
== END 2017-12-26 06:45 | disposition home or self-care (01) | DRG 773 ==
LOC: YASAS 08:47 → Y6N 12:15
PROVIDERS: ADMIT Internal Medicine; ATTEND Internal Medicine
PROC: HZ2ZZZZ Detoxification Services for Substance Abuse Treatment (ICD-10-PCS; principal; 2017-12-23)
DX: F11.23 Opioid dependence with withdrawal (principal); F10.230 Alcohol dependence with withdrawal, uncomplicated; F14.20 Cocaine dependence, uncomplicated; F17.210 Nicotine dependence, cigarettes, uncomplicated; F33.9 Major depressive disorder, recurrent, unspecified; F31.9 Bipolar disorder, unspecified; F43.10 Post-traumatic stress disorder, unspecified; F25.9 Schizoaffective disorder, unspecified; I10 Essential (primary) hypertension; J45.20 Mild intermittent asthma, uncomplicated; K21.9 Gastro-esophageal reflux disease without esophagitis; B18.2 Chronic viral hepatitis C; G47.00 Insomnia, unspecified
CPT/HCPCS: 36415; 80053; 81003; 81015; 85027; 86593; 93005; 93010